=== PATIENT | male | born 1945 | race Caucasian/White ===

== ENCOUNTER 2017-05-31 16:31 | Observation (INO) | payer OTHER ==
[2017-05-31 16:39] VITALS: BMI 29.9
--- NOTE | 2017-05-31 16:39 | PDOC ---
Rapid Medical Evaluation Time Seen by Provider: 05/31/17 16:35 Medical Evaluation: Allergies Allergy/AdvReac Type Severity Reaction Status Date / Time No Known Allergies Allergy Verified 05/31/17 16:35 12 16:35 I have performed a brief in person evaluation of this patient. The patient presents with chief complaint of : chest tightness and epigastric burning started for 2 days, worse today , denies nausea . pt has history of arythmia, HTN, takes "blood thinners" Pertinent PE findings: irregular apical HR, I have ordered the following: EKG labs The patient will proceed to the ER for further evaluation.
--- NOTE | 2017-05-31 17:37 | PDOC ---
History of Present Illness - General Chief Complaint: Chest Pain Stated Complaint: CHEST PAIN Time Seen by Provider: 05/31/17 16:35 - History of Present Illness Initial Comments: 05/31/17 17:33 71 yo M with h/o HTN, A-fib on Pradaxa, and tonsilar cancer who presents with chest pain. Patient reports substernal chest pain of 2 days duration worsening in severity. Pain intermittent and fluctuates between sharp and pressure like sensation lasting seconds then resolving. Also reports regurgitation like symptoms. Symptoms aggravated with PO food intake. No other identifiable triggers. Denies N/V, fevers/chills, lightheadedness, abdominal pain, urinary complaints, diarrhea, constipation. Denies OTC pain. PCP/Jewelry Consultant Dr.Erik Leger. Denies h/o IL, CABG, Stent placement. Tobacco cessation 40 years ago. Past History - Past Medical History Allergies/Adverse Reactions: Allergies Allergy/AdvReac Type Severity Reaction Status Date / Time No Known Allergies Allergy Verified 05/31/17 16:35 Home Medications: Ambulatory Orders Dabigatran Etexilate Mesylate [Pradaxa -] 150 mg PO BID 07/02/14 Finasteride [Proscar -] 5 mg PO DAILY 07/02/14 Levothyroxine [Synthroid -] 125 mcg PO DAILY 07/02/14 Metoprolol Tartrate [Lopressor -] 50 mg PO BID 07/02/14 Alfuzosin HCl [Uroxatral] 10 mg PO DAILY 05/31/17 Allopurinol [Zyloprim -] 100 mg PO DAILY 05/31/17 Diltiazem HCl [Diltiazem 24Hr Cd] 240 mg PO DAILY 05/31/17 Losartan Potassium 50 mg PO BID 05/31/17 Cardiac Disorders: Yes (a-fib) COPD: No HTN: Yes - Suicide/Smoking/Psychosocial Hx Smoking Status: No Smoking History: Former smoker Have you smoked in the past 12 months: No Number of Cigarettes Smoked Daily: 0 Information on smoking cessation initiated: No Review of Systems - Review of Systems Comments:: 05/31/17 17:33 GENERAL/CONSTITUTIONAL: No fever or chills. No weakness. HEAD, EYES, EARS, NOSE AND THROAT: No change in vision. No ear pain or discharge. No sore throat.- CARDIOVASCULAR: + chest pain. No shortness of breath RESPIRATORY: No cough, wheezing, or hemoptysis. GASTROINTESTINAL: No nausea, vomiting, diarrhea or constipation. GENITOURINARY: No dysuria, frequency, or change in urination. MUSCULOSKELETAL: No joint or muscle swelling or pain. No neck or back pain. SKIN: No rash NEUROLOGIC: No headache, vertigo, loss of consciousness, or change in strength/ sensation. ENDOCRINE: No increased thirst. No abnormal weight change HEMATOLOGIC/LYMPHATIC: No anemia, easy bleeding, or history of blood clots. ALLERGIC/IMMUNOLOGIC: No hives or skin allergy. *Physical Exam - Vital Signs Last Vital Signs Temp Pulse Resp BP Pulse Ox 98 F 77 19 149/82 97 05/31/17 16:35 05/31/17 16:35 05/31/17 16:35 05/31/17 16:35 05/31/17 16:35 - Physical Exam Comments: 05/31/17 17:33 GENERAL: Awake, alert, and fully oriented, in no acute distress HEAD: No signs of trauma, normocephalic, atraumatic EYES: PERRLA, EOMI, sclera anicteric, conjunctiva clear ENT: Hearing grossly normal, nares patent, oropharynx clear without exudates. Moist mucosa NECK: Normal ROM, supple, no lymphadenopathy, JVD, or masses LUNGS: No distress, speaks full sentences, clear to auscultation bilaterally HEART: Regular rate and rhythm, normal S1 and S2, no murmurs, rubs or gallops, peripheral pulses normal and equal bilaterally. ABDOMEN: Soft, substernal/epigastric ttp, normoactive bowel sounds. No guarding , no rebound. No masses. Neg CVA ttp. Neg hendricks sign, or [place] ttp. EXTREMITIES : Normal inspection, Normal range of motion, no edema. No clubbing or cyanosis. SKIN: Warm, Dry, normal turgor, no rashes or lesions noted. Heart Score/ECG Review - History History: Slightly suspicious - Electrocardiogram EKG: Normal - Age Age: >/= 65 - Risk Factors Risk Factors Heart Score: Yes Hx Hypertension, Yes Smoking History, Yes Positive family hx of cardiac disease Based on the list above the patient has:: >/=3 risk factors or Hx atherosclerotic disease - Troponin Troponin: </= normal limit - Score Heart Score - Total: 4 - ECG Intrepretation Rhythm: Irregularly Irregular - ST and T Early Repolarization: No Non Specific ST-T Wave changes: No - ECG Impressions Normal ECG: No Non-specific ST Elevation: No Ischemic Changes: No ED Treatment Course - LABORATORY CBC & Chemistry Diagram: 05/31/17 17:55 05/31/17 17:55 Medical Decision Making - Medical Decision Making 05/31/17 18:07 71 yo M with h/o HTN, A-fib on Pradaxa, and tonsilar cancer who presents with intermittent, worsening, substernal chest pain of 2 days duration. Pain fluctuates between sharp and pressure like sensation lasting seconds then resolving. Also reports regurgitation like symptoms. Symptoms aggravated with PO food intake. No other identifiable triggers. Denies N/V, fevers/chills, lightheadedness, abdominal pain, urinary complaints, diarrhea, constipation. Physical exam reveals epigastric/substernal ttp. Physical exam and history consistent with gastritis vs. PUD (unlikely). Will consider atypical presentation ACS/IL in patient with multiple risk factors. ED Course: CBC, CMP, Lipase, Trop, Cardiac Profile EKG, UA 05/31/17 18:16 EKG: A- fib with absent MARIANO, STD, or TWI. 05/31/17 18:51 CBC: Unremarkable 05/31/17 18:55 Cr 1.9, BUN 25 05/31/17 18:56 Heart score 5 with 13 % risk MACE. 1 L NS 05/31/17 19:[address] Karrie Hector. Per Dr. Yoon will stay on Pradaxa. Will admit to Dr. Moncada tele/obs *DC/Admit/Observation/Transfer Diagnosis at time of Disposition: Chest pain - Discharge Dispostion Admit: Yes - Referrals - Patient Instructions - Post Discharge Activity
--- NOTE | 2017-05-31 17:38 | PDOC ---
Attending Attestation - Resident Resident Name: Richard Pelayo - ED Attending Attestation I have performed the following: I have examined & evaluated the patient, The case was reviewed & discussed with the resident, I agree w/resident's findings & plan, Exceptions are as noted - HPI HPI: 05/31/17 17:36 Chest Pain, On and Off past few days. None at present - Physicial Exam PE: 05/31/17 17:36 VSS NAD - Medical Decision Making 05/31/17 17:[address] Richard Pelayo's Assessment and Plan <Doug Salmeron - Last Filed: 05/31/17 17:36> Heart Score/ECG Review - ECG Intrepretation Comment:: 05/31/17 18:49 Vent Rate: 69 bpm IMPRESSION: Atrial fibrillation. <Savage Kwon - Last Filed: 05/31/17 18:50>
[2017-05-31] MEDS ORDERED: MAG HYDROX/AL HYDROX/SIMETH 30 ML UNIT-DOSE CUP PO ONE (17:57)
[2017-05-31] MEDS ORDERED: FAMOTIDINE IV 20 MG/12 ML VIAL IVPUSH ONE (18:00)
[2017-05-31 18:13] LABS: BASOPHIL 0.8 % (0-2.0); EOSINOPHIL 1.5 % (0-4.5); MCH 31.4 pg (25.7-33.7); MCHC 34.2 g/dl (32.0-35.9); MEAN CELL VOLUME 91.7 fl (80-96); NEUTROPHILS 68.4 % (42.8-82.8); PLATELET COUNT 140 K/MM3 (134-434); RDW 14.5 % (11.9-15.9); WHITE BLOOD COUNT 8.2 K/mm3 (4.0-10.0)
[2017-05-31] MEDS ORDERED: ONDANSETRON 4 MG/2 ML VIAL ONE (18:23)
[2017-05-31] MEDS ORDERED: MAG HYDROX/AL HYDROX/SIMETH 30 ML UNIT-DOSE CUP ONE (18:23)
[2017-05-31] MEDS ORDERED: FAMOTIDINE 20 MG/50 ML IVPB 20 MG/50 ML MG IVPB ONE (18:24)
[2017-05-31 18:46] LABS: ALBUMIN 4.2 g/dl (3.4-5.0); ANION GAP 7 (8-16); CALCIUM 9.6 mg/dL (8.5-10.1); CO2 30 mmol/L (21-32); CPK 279 IU/L (39-308); CREATININE 1.9 mg/dL (0.7-1.3); GLUCOSE,RANDOM 85 mg/dL (74-106); SGOT/AST 21 U/L (15-37); SGPT/ALT 34 U/L (12-78); TOT PROT 7.1 g/dl (6.4-8.2)
[2017-05-31 18:47] LABS: ALK PHOS 100 U/L (45-117); TROPONIN I < 0.02 ng/ml (0.00-0.05)
[2017-05-31] MEDS ORDERED: SODIUM CHLORIDE 1,000 ML IV STA (18:55)
--- NOTE | 2017-05-31 21:38 | HP ---
Admitting History and Physical - Primary Care Physician PCP: Ken Moncada - Admission Chief Complaint: chest pain History of Present Illness: 71 yo M with h/o HTN, A-fib on Pradaxa, and tonsilar cancer who presents with chest pain. Patient reports substernal chest pain of 2 days duration worsening in severity. Pain intermittent and fluctuates between sharp and pressure like sensation lasting seconds then resolving. Also reports regurgitation like symptoms. Symptoms aggravated with PO food intake. No other identifiable triggers. Denies N/V, fevers/chills, lightheadedness, abdominal pain, urinary complaints, diarrhea, constipation. Denies OTC pain. PCP/Career Technical Counselor Dr.Erik Leger. Denies h/o DC, CABG, Stent placement. Tobacco cessation 40 years ago. - Past Medical History Cardiovascular: Yes: AFIB, HTN Heme/Onc: Yes: Other (cancer tonsil) - Smoking History Smoking history: Former smoker Have you smoked in the past 12 months: No Aproximately how many cigarettes per day: 0 Home Medications - Allergies Allergies/Adverse Reactions: Allergies Allergy/AdvReac Type Severity Reaction Status Date / Time No Known Allergies Allergy Verified 05/31/17 16:35 - Home Medications Home Medications: Ambulatory Orders Dabigatran Etexilate Mesylate [Pradaxa -] 150 mg PO BID 07/02/14 Finasteride [Proscar -] 5 mg PO DAILY 07/02/14 Levothyroxine [Synthroid -] 125 mcg PO DAILY 07/02/14 Metoprolol Tartrate [Lopressor -] 50 mg PO BID 07/02/14 Alfuzosin HCl [Uroxatral] 10 mg PO DAILY 05/31/17 Allopurinol [Zyloprim -] 100 mg PO DAILY 05/31/17 Diltiazem HCl [Diltiazem 24Hr Cd] 240 mg PO DAILY 05/31/17 Losartan Potassium 50 mg PO BID 05/31/17 Physical Examination Vital Signs: Vital Signs Temperature 98.5 F 05/31/17 21:14 Pulse Rate 70 05/31/17 21:14 Respiratory Rate 19 05/31/17 21:14 Blood Pressure 183/75 05/31/17 21:14 O2 Sat by Pulse Oximetry (%) 98 05/31/17 19:12 Constitutional: Yes: No Distress HENT: Yes: Atraumatic Neck: Yes: Supple Cardiovascular: Yes: Regular Rate and Rhythm Respiratory: Yes: CTA Bilaterally Gastrointestinal: Yes: Normal Bowel Sounds Extremities: Yes: WNL Neurological: Yes: Alert, Oriented Labs: CBC, BMP 05/31/17 17:55 05/31/17 17:55 Problem List - Problems (1) A-fib Assessment/Plan: on meds Code(s): I48.91 - UNSPECIFIED ATRIAL FIBRILLATION (2) HTN (hypertension) Assessment/Plan: on meds Code(s): I10 - ESSENTIAL (PRIMARY) HYPERTENSION (3) Chest pain Assessment/Plan: tele monitoring fu cardiac enzymes cardiology consult Code(s): R07.9 - CHEST PAIN, UNSPECIFIED Assessment/Plan Laboratory Tests 05/31/17 05/31/17 05/31/17 17:55 17:55 17:55 WBC 8.2 RBC 4.80 Hgb 15.1 Hct 44.1 MCV 91.7 MCH 31.4 MCHC 34.2 RDW 14.5 Plt Count 140 MPV 9.0 Neutrophils % 68.4 Lymphocytes % 20.8 Monocytes % 8.5 Eosinophils % 1.5 Basophils % 0.8 Sodium 138 Potassium 4.1 Chloride 101 Carbon Dioxide 30 D Anion Gap 7 L BUN 25 H Creatinine 1.9 H Creat Clearance w eGFR 35.02 Random Glucose 85 Calcium 9.6 Total Bilirubin 1.0 D AST 21 ALT 34 Alkaline Phosphatase 100 Creatine Kinase 279 Creatine Kinase Index 2.3 CK-MB (CK-2) 6.532 H Troponin I < 0.02 Total Protein 7.1 Albumin 4.2 Lipase 151
[2017-05-31] MEDS: DABIGATRAN ETEXILATE MESYLATE 150 MG CAPSULE PO SCH (22:14)
[2017-05-31] MEDS: METOPROLOL TARTRATE 50 MG TABLET (FP) PO SCH (22:14)
[2017-05-31] MEDS: LOSARTAN POTASSIUM 50 MG TABLET (FP) PO SCH (22:15)
[2017-05-31] MEDS ORDERED: ACETAMINOPHEN 325 MG TABLET (FP) PO PRN (23:13)
[2017-05-31 23:49] LABS: ANION GAP 9 (8-16); BILIRUBIN,TOTAL 1.1 mg/dL (0.2-1.0); CALCIUM 9.4 mg/dL (8.5-10.1); CO2 27 mmol/L (21-32); CREATININE 1.7 mg/dL (0.7-1.3); GLUCOSE,RANDOM 79 mg/dL (74-106); SGOT/AST 21 U/L (15-37); SGPT/ALT 32 U/L (12-78); TOT PROT 6.9 g/dl (6.4-8.2)
[2017-05-31 23:52] LABS: ALK PHOS 94 U/L (45-117); CPK 251 IU/L (39-308); TROPONIN I < 0.02 ng/ml (0.00-0.05)
[2017-06-01 06:05] VITALS: TEMP 97.6
[2017-06-01] MEDS ORDERED: LEVOTHYROXINE NA 125 MCG TABLET (FP) PO SCH (07:00)
[2017-06-01 07:36] LABS: BASOPHIL 0.8 % (0-2.0); EOSINOPHIL 2.2 % (0-4.5); MCH 31.2 pg (25.7-33.7); MCHC 34.6 g/dl (32.0-35.9); MEAN CELL VOLUME 90.3 fl (80-96); MEAN PLT VOLUME 8.6 fl (7.5-11.1); NEUTROPHILS 62.6 % (42.8-82.8); PLATELET COUNT 126 K/MM3 (134-434); RDW 14.4 % (11.9-15.9); WHITE BLOOD COUNT 6.7 K/mm3 (4.0-10.0)
--- NOTE | 2017-06-01 08:21 | PN ---
Progress Note (short form) - Note Progress Note: Chief Complaint: Events noted, notes reviewed, denies any further chest pain, denies any dyspnea History of Present Illness: Seen and examined on telemetry. Full consult dictated - Current Medication List Current Medications Acetaminophen (Tylenol -) 650 mg PO Q6H PRN PRN Reason: FEVER OR PAIN Last Admin: 05/31/17 23:16 Dose: 650 mg Allopurinol (Zyloprim -) 100 mg PO DAILY [facility] Dabigatran (Pradaxa -) 150 mg PO BID [facility] Last Admin: 05/31/17 22:14 Dose: 150 mg Diltiazem HCl (Cardizem Cd -) 240 mg PO DAILY [facility] Finasteride (Proscar -) 5 mg PO DAILY [facility] Levothyroxine Sodium (Synthroid -) 125 mcg PO DAILY@0700 [facility] Last Admin: 06/01/17 06:08 Dose: 125 mcg Losartan Potassium (Cozaar -) 50 mg PO BID [facility] Last Admin: 05/31/17 22:15 Dose: 50 mg Metoprolol Tartrate (Lopressor -) 50 mg PO BID [facility] Last Admin: 05/31/17 22:14 Dose: 50 mg Tamsulosin HCl (Flomax -) 0.4 mg PO DAILY@0830 [facility] Review of Systems Cardiovascular: As noted above Respiratory: denies: Cough or Sputum Production Gastrointestinal: denies: Nausea, Vomiting, Diarrhea, Constipation or Abdominal Discomfort Musculoskeletal: No Symptoms Reported Endocrine: No Symptoms Reported - Objective Vital Signs: Last Vital Signs Temp Pulse Resp BP Pulse Ox 97.6 F 58 L 19 138/67 98 06/01/17 06:00 06/01/17 06:00 06/01/17 06:00 06/01/17 06:00 05/31/17 21:48 Intake & Output 05/29/17 05/30/17 05/31/17 06/01/17 23:59 23:59 23:59 23:59 Intake Total 240 Balance 240 Weight 205 lb Constitutional: No Distress, Calm Neck: Supple Negative JVD No Bruit Cardiovascular: S1 S2 Irregularly Irregular No Murmurs Clicks or Gallops Respiratory: Clear to A&P Bilaterally Gastrointestinal: Soft Benign Normal Bowel Sounds Ext: Negative Edema Labs: CBC, BMP 06/01/17 05:22 05/31/17 22:40 Troponin, BNP 05/31/17 05/31/1705/31/17 17:55 22:40 22:40 Troponin I < 0.02 < 0.02 Cancelled Hepatic Panel Total Bilirubin 1.1 mg/dL (0.2-1.0) H 05/31/17 22:40 AST 21 U/L (15-37) 05/31/17 22:40 ALT 32 U/L (12-78) 05/31/17 22:40 Alkaline Phosphatase 94 U/L (45-117) 05/31/17 22:40 Albumin 4.0 g/dl (3.4-5.0) 05/31/17 22:40 Assessment/Plan ASSESSMENT: 1. Chest pain syndrome, atypical for CAD angina pectoris, but to be excluded, other differential includes GERD/PUD 2. Diastolic LV dysfunction with class 0 NYHA clarification LV failure 3. Persistent atrial fibrillation [id number] score of 3 on NOAC's/Pradaxa 4. HTN 5. Hypercholesterolemia 6. CKD 7. 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 History of Gout PLAN: 1. Continue Lopressor 2. Continue Cardizem CD 3. Continue Cozaar 4. Continue Pradaxa 5. Recommend the addition of Ranexa or Imdur, pending completion of evaluation 6. Recommend the addition of H2 blockers, and GI evaluation as outpatient 7. Echocardiography and MPI study can be performed as outpatient with patient's pediatric physiatrist in [facility], Dr. Freddie Lopez Above was reviewed in detail with the patient Wali Galvan M.D.
[2017-06-01] MEDS ORDERED: TAMSULOSIN HCL 0.4 MG CAP.ER.24H (FP) PO SCH (08:30)
[2017-06-01] MEDS: RANOLAZINE E.R. 500 MG TABLET (FP) PO SCH ×2 (09:23→09:25)
[2017-06-01] MEDS: RANITIDINE HCL 150 MG TABLET (FP) PO SCH ×2 (09:24→09:25)
[2017-06-01] MEDS: DABIGATRAN ETEXILATE MESYLATE 150 MG CAPSULE PO SCH (09:24)
[2017-06-01] MEDS: LOSARTAN POTASSIUM 50 MG TABLET (FP) PO SCH (09:25)
[2017-06-01] MEDS: METOPROLOL TARTRATE 50 MG TABLET (FP) PO SCH ×2 (09:25→11:25)
[2017-06-01] MEDS ORDERED: FINASTERIDE 5 MG TABLET (FP) PO SCH (10:00)
[2017-06-01] MEDS ORDERED: ALLOPURINOL 100 MG TABLET (FP) PO SCH (10:00)
--- NOTE | 2017-06-01 10:38 | CONS ---
DATE OF CONSULTATION: 06/01/2017 REQUESTING PHYSICIAN: Charlotte Moncada MD CHIEF COMPLAINT: Chest peain, cardiovascular evaluation. HISTORY OF PRESENT ILLNESS: This is a 71-year-old male with known history of probable diastolic left ventricular dysfunction with class 0 [place] [employer] Classification left ventricular failure, persistent atrial fibrillation, CHADS2-VASc score of 3, on chronic anticoagulation therapy with Pradaxa, hypertensive cardiovascular disease, hypercholesterolemia, history of oropharyngeal carcinoma post radiation therapy, benign prostatic hypertrophy, and gout, who presented to [facility] with progressive retrosternal chest discomfort, which has been noted for the last 3 days. Symptoms were described a burning sensation noted at rest and with physical activity. Patient, in addition, reported progressive fatigue and tiredness and exertional dyspnea. Patient did not report any exacerbation with physical exertion. Patient denied any associated symptomatology, i.e. diaphoresis. Patient denied any orthopnea, paroxysmal nocturnal dyspnea, or peripheral edema. Patient denied any palpitations, dizziness, lightheadedness, or syncope. Patient stated that there was partial alleviation after ingestion of antacid therapy. PAST MEDICAL HISTORY: Probable diastolic left ventricular dysfunction with class 0 [place] [employer] Classification left ventricular failure, persistent atrial fibrillation, CHADS2-VASc score of 3, on chronic anticoagulation therapy with Pradaxa, hypertensive cardiovascular disease, hypercholesterolemia, oropharyngeal carcinoma post radiation therapy, benign prostatic hypertrophy, and gout. SOCIAL HISTORY: Remote history of tobacco abuse. FAMILY HISTORY: Positive for coronary artery disease. ALLERGIES: None reported. MEDICAL THERAPY: At home included Synthroid 125 mcg once daily for hypothyroidism, Lopressor 50 mg twice a day, Cardizem CD 240 mg once a day, losartan 50 mg twice a day, Proscar 5 mg once a day, Uroxatral 10 mg once a day, Pradaxa 150 mg twice a day, allopurinol 100 mg twice a day. REVIEW OF SYSTEMS: Head and neck: Denies headache, photophobia, blurring of vision. Respiratory: Denies cough or sputum production. Cardiovascular: As noted above. Gastrointestinal: Denies nausea, vomiting, diarrhea, or abdominal discomfort. Genitourinary: No symptoms reported. Musculoskeletal: No symptoms reported. PHYSICAL EXAMINATION: Vital signs: Blood pressure is 138/67 mmHg, pulse rate is 58 beats per minute. Head and neck: Pupils are equally reactive to light and accommodation. Extraocular muscles are intact. Anicteric sclerae. Negative JVD. No bruit appreciated. Chest: Clear to auscultation and percussion. Cardiovascular: S1, S2 irregularly irregular. No murmur, clicks or gallops. Abdomen: Soft, benign. Normoactive bowel sounds. Extremities: Negative edema. Intact distal pulses. No calf tenderness. STUDIES: Electrocardiogram reveals atrial fibrillation with rapid ventricular at 69 with non-specific T-wave abnormality. Chest x-ray report was noted. CBC revealed a white cell count of 6.7, hemoglobin 14.3, platelet count 126. CPK troponin I levels were noted. Sodium 140, potassium 3.8, BUN of 24, creatinine 1.7, glucose 79. ASSESSMENT: 1. Chest pain syndrome, atypical for coronary artery disease, angina pectoris to be excluded. Other differential includes possible gastroesophageal reflux disease or peptic ulcer disease. 2. Diastolic left ventricular dysfunction with class 0 [place] [employer] Classification left ventricular failure. 3. Persistent atrial fibrillation, CHADS-VASc score of 3 on chronic anticoagulation therapy with Pradaxa. 4. Hypertensive cardiovascular disease. 5. Hypercholesterolemia. 6. Chronic kidney disease. 7. Benign prostatic hypertrophy. 8. History of oropharyngeal carcinoma post radiation therapy. 9. History of gout. RECOMMENDATION: 1. Continuation of Lopressor. 2. Continuation of Cardizem CD. 3. Continuation of Cozaar. 4. Continuation of Pradaxa. 5. Recommend the addition of Ranexa or Imdur pending completion of evaluation. 6. Recommend the addition of H2 blockers and further GI evaluation on an outpatient basis. 7. Echocardiography and myocardial perfusion imaging study, can be performed on an outpatient basis with patients marketing recruiter in [facility], Dr. Freddie Lopez. Above was reviewed in detail with the patient, who prefers as outlined above outpatient evaluation and management. Thank you for the kind referral. COURTNEY MULLINS M.D. EMELYN/[id number]
--- NOTE | 2017-06-01 10:48 | DS ---
Physical Examination Vital Signs: Vital Signs Temperature 97.6 F 06/01/17 06:00 Pulse Rate 58 L 06/01/17 06:00 Respiratory Rate 19 06/01/17 06:00 Blood Pressure 138/67 06/01/17 06:00 O2 Sat by Pulse Oximetry (%) 98 05/31/17 21:48 Constitutional: Yes: No Distress HENT: Yes: Atraumatic Neck: Yes: Supple Cardiovascular: Yes: Regular Rate and Rhythm Respiratory: Yes: CTA Bilaterally Gastrointestinal: Yes: Normal Bowel Sounds Extremities: Yes: WNL Neurological: Yes: Alert, Oriented Labs: CBC, BMP 06/01/17 05:22 05/31/17 22:40 Discharge Summary Reason For Visit: CHEST PAIN Current Active Problems A-fib (Acute) Chest pain (Acute) HTN (hypertension) (Acute) - Instructions Disposition: HOME - Home Medications Comprehensive Discharge Medication List: Ambulatory Orders Dabigatran Etexilate Mesylate [Pradaxa -] 150 mg PO BID 07/02/14 Finasteride [Proscar -] 5 mg PO DAILY 07/02/14 Levothyroxine [Synthroid -] 125 mcg PO DAILY 07/02/14 Metoprolol Tartrate [Lopressor -] 50 mg PO BID 07/02/14 Alfuzosin HCl [Uroxatral] 10 mg PO DAILY 05/31/17 Allopurinol [Zyloprim -] 100 mg PO DAILY 05/31/17 Diltiazem HCl [Diltiazem 24Hr Cd] 240 mg PO DAILY 05/31/17 Losartan Potassium 50 mg PO BID 05/31/17 in home
[2017-06-01 11:27] VITALS: BP 139/92; PULSE 50
--- NOTE | 2017-06-02 07:53 | EKG ---
Test Reason : Blood Pressure : / mmHG Vent. Rate : 069 BPM Atrial Rate : 085 BPM P-R Int : 000 ms QRS Dur : 104 ms QT Int : 378 ms P-R-T Axes : 000 -07 052 degrees QTc Int : 405 ms ATRIAL FIBRILLATION ABNORMAL ECG A 1.9 second pause is noted WHEN COMPARED WITH ECG OF 02-JUL-2014 20:13, NO SIGNIFICANT CHANGE WAS FOUND Confirmed by MD Pineda Daniel ([id number]) on 06/01/2017 2:56:22 PM Also confirmed by MD Pineda Daniel ([id number]), field map editor BLAS WARNER ([id number]) on 06/02/2017 7:53:24 AM Referred By: Confirmed By:Blas Pineda MD
== END 2017-06-01 15:31 | disposition home or self-care (01) ==
LOC: JER 16:31 → JERBED 19:19 → J4W 21:25
PROVIDERS: ADMIT Internal Medicine; ATTEND Internal Medicine
PROC: 3E0337Z Introduction of Electrolytic and Water Balance Substance into Peripheral Vein, Percutaneous Approach (ICD-10-PCS; principal; 2017-05-31)
PROC: 3E033GC Introduction of Other Therapeutic Substance into Peripheral Vein, Percutaneous Approach (ICD-10-PCS; 2017-05-31)
DX: R07.9 Chest pain, unspecified (principal); I48.91 Unspecified atrial fibrillation; Z79.01 Long term (current) use of anticoagulants; I10 Essential (primary) hypertension
CPT/HCPCS: 36415; 71010-TC; 80053; 82550; 82553; 83690; 84484; 85025; 93005; 93010; 96361; 96374; 99284-25; G0378

== ENCOUNTER 2018-10-02 12:29 | Emergency (ER) | payer OTHER ==
[2018-10-02 12:55] VITALS: BMI 30.2
--- NOTE | 2018-10-02 14:19 | PDOC ---
History of Present Illness - General Chief Complaint: Blood Pressure Problem Stated Complaint: HYPERTENSION Time Seen by Provider: 10/02/18 13:49 Past History - Past Medical History Allergies/Adverse Reactions: Allergies Allergy/AdvReac Type Severity Reaction Status Date / Time No Known Allergies Allergy Verified 05/31/17 16:35 Home Medications: Ambulatory Orders Dabigatran Etexilate Mesylate [Pradaxa -] 150 mg PO BID 07/02/14 Finasteride [Proscar -] 5 mg PO DAILY 07/02/14 Levothyroxine [Synthroid -] 125 mcg PO DAILY 07/02/14 Metoprolol Tartrate [Lopressor -] 50 mg PO BID 07/02/14 Alfuzosin HCl [Uroxatral] 10 mg PO DAILY 05/31/17 Allopurinol [Zyloprim -] 100 mg PO DAILY 05/31/17 Diltiazem HCl [Diltiazem 24Hr Cd] 240 mg PO DAILY 05/31/17 Losartan Potassium 50 mg PO BID 05/31/17 Cardiac Disorders: Yes (a-fib) COPD: No HTN: Yes - Suicide/Smoking/Psychosocial Hx Smoking Status: No Smoking History: Never smoked Have you smoked in the past 12 months: No Number of Cigarettes Smoked Daily: 0 Hx Alcohol Use: No Review of Systems - Review of Systems Able to Perform ROS?: Yes Comments:: 10/02/18 14:59 CONSTITUTIONAL: Absent: fever, chills, diaphoresis, generalized weakness, malaise, loss of appetite HEENT: Absent: rhinorrhea, nasal congestion, throat pain, throat swelling, difficulty swallowing, mouth swelling, ear pain, eye pain, visual Changes CARDIOVASCULAR: Absent: chest pain, loss of consciousness, palpitations, irregular heart rate, peripheral edema RESPIRATORY: Absent: cough, shortness of breath, dyspnea with exertion, orthopnea, wheezing, stridor, hemoptysis GASTROINTESTINAL: Absent: abdominal pain, abdominal distension, nausea, vomiting, diarrhea, constipation, melena, hematochezia GENITOURINARY: Absent: dysuria, frequency, urgency, hesitancy, hematuria, flank pain, genital pain MUSCULOSKELETAL: Absent: myalgia, arthralgia, joint swelling SKIN: Absent: rash, itching, pallor HEMATOLOGIC/IMMUNOLOGIC: Absent: easy bleeding, easy bruising, lymphadenopathy, frequent infections ENDOCRINE: Absent: unexplained weight gain, unexplained weight loss, heat intolerance, cold intolerance NEUROLOGIC: Absent: headache, focal weakness or paresthesias, dizziness, unsteady gait, seizure, mental status changes, bladder or bowel incontinence PSYCHIATRIC: Absent: anxiety, depression, suicidal or homicidal ideation, hallucinations. Is the patient limited Turkmen proficient: No *Physical Exam - Vital Signs Last Vital Signs Temp Pulse Resp BP Pulse Ox 98.8 F 72 18 157/76 99 10/02/18 12:51 10/02/18 12:51 10/02/18 12:51 10/02/18 12:51 10/02/18 12:51 - Physical Exam Comments: 10/02/18 14:59 GENERAL: Well developed, well nourished. Awake and alert. No acute distress. HEENT: Normocephalic, atraumatic. PERRLA, EOMI. No conjunctival pallor. Sclera are non- icteric. Moist mucous membranes. Oropharynx is clear. NECK: Supple. Full ROM. No JVD. Carotid pulses 2+ and symmetric, without bruits. No thyromegaly. No lymphadenopathy. CARDIOVASCULAR: Irregularly irregular rate and rhythm. No murmurs, rubs, or gallops. Distal pulses are 2+ and symmetric. PULMONARY: No evidence of respiratory distress. Lungs clear to auscultation bilaterally. No wheezing, rales or rhonchi. SKIN: Warm and dry. Normal capillary refill. No rashes. No jaundice. NEUROLOGICAL: Alert, awake, appropriate. Cranial nerves 2-12 intact. No deficits to light touch and temperature in face, upper extremities and lower extremities. No motor deficits in the in face, upper extremities and lower extremities. Normoreflexic in the upper and lower extremities. Normal speech. Toes are down- going bilaterally. Gait is normal without ataxia. PSYCHIATRIC: Cooperative. Good eye contact. Appropriate mood and affect. Medical Decision Making - Medical Decision Making 10/02/18 14:43 HPI: The patient is a 73 y/o M with PHM of Afib, HTN, hypothyroidism, who presents to the ED for elevated blood pressure. He states that he noticed his blood pressure was elevated to 180/90 at home; so he presented to the ED for evaluation. He states that when he got to the ED (~12pm) he took a dose of Cardizem 240mg and Metoprolol 50mg. He states as he was sitting in the ED he remembered that he took the same medications at 8 am this morning. Denies headaches, LOC, lightheadedness, fever, chills, n/v/d, weakness to the extremities A/P: Hypertension; double dosing of home Metoprolol and Cardizem -Pt usually takes Lopressor 50mg BID and Cardizem 24hr 240mg -Poison control contacted d/t double dosing of lopressor and cardizem. Pt took 100mg total of Lopressor and 480mg of Cardizem. Doses taken at 8 am and 12pm. -Max dose of cardizem daily is 540mg per poison control. -Recommending at least a 6 hour observation period. -Pt has no complaints at this time; repeat BP 165/90 -EKG: Afib, rate 53 BPM, slow ventricular response. No ST-T wave changes, abnormal EKG -Pt transferred to the Main ED for higher level of care. Dr. Roth and Charge Nurse Akosua harrell. *DC/Admit/Observation/Transfer Diagnosis at time of Disposition: HTN (hypertension) Qualifiers: Hypertension type: unspecified Qualified Code(s): I10 - Essential (primary) hypertension Medication overdose Qualifiers: Encounter type: initial encounter Injury intent: accidental or unintentional Qualified Code(s): T50.901A - Poisoning by unspecified drugs, medicaments and biological substances, accidental (unintentional), initial encounter - Referrals - Patient Instructions - Post Discharge Activity
--- NOTE | 2018-10-02 15:06 | PDOC ---
*Physical Exam - Vital Signs Last Vital Signs Temp Pulse Resp BP Pulse Ox 98.8 F 72 18 157/76 98 10/02/18 12:51 10/02/18 12:51 10/02/18 12:51 10/02/18 12:51 10/02/18 14:55 - Physical Exam Comments: 10/02/18 15:12 HEAD: No signs of trauma, normocephalic, atraumatic EYES: EOMI, sclera anicteric, conjunctiva clear ENT: oropharynx clear without exudates. Moist mucosa NECK: Normal ROM, supple LUNGS: No distress, speaks full sentences, clear to auscultation bilaterally HEART: Regular rate and irregular rhythm, normal S1 and S2, no murmurs, rubs or gallops, peripheral pulses normal and equal bilaterally. ABDOMEN: Soft, nontender, normoactive bowel sounds. No guarding, no rebound. No masses EXTREMITIES : Normal inspection, Normal range of motion, no edema. No clubbing or cyanosis. NEUROLOGICAL: Cranial nerves II through XII grossly intact. Normal speech, no focal sensorimotor deficits SKIN: Warm, Dry, normal turgor, no rashes or lesions noted Medical Decision Making - Medical Decision Making 10/02/18 15:06 73 year old man with a history of afib, htn, hypothyroidism presents with hypertention to 180/90s at home took cardizem 240mg and metorpolol 50mg at 8am and again at 12pm. Po[facility] control [facility] recommends an observation of 6 hours BP in ED 165/90 EKG with afib at 53bpm, no st segment elevation ED Course: Will observe patient with repeat BP checks 10/02/18 16:59 repeat vitals: 150/79, hr 59 *DC/Admit/Observation/Transfer Diagnosis at time of Disposition: HTN (hypertension) Qualifiers: Hypertension type: unspecified Qualified Code(s): I10 - Essential (primary) hypertension Medication overdose Qualifiers: Encounter type: initial encounter Injury intent: accidental or unintentional Qualified Code(s): T50.901A - Poisoning by unspecified drugs, medicaments and biological substances, accidental (unintentional), initial encounter - Discharge Dispostion Disposition: HOME Condition at time of disposition: Stable Decision to Admit order: No - Referrals - Patient Instructions Printed Discharge Instructions: DI for High Blood Pressure Additional Instructions: You were seen in the ED for complaints of repeat dosing of blood pressure medications. In the ED you were evaluated and observed for 6 hours as advised by poison control. you showed stable vitals throughout. There does not appear to be an acute need for immediate hospitalization. You are advised to follow up with your Primary Care Physician within 1 week. Please make sure that you take all medications as directed. If you have trouble taking your medications appropriately please bring this up to your Family Doctor. Return to the ED immediately if you experience lightheadedness, loss of consciousness, chest pain, shortness of breath, headache or falls. - Post Discharge Activity
[2018-10-02 18:19] VITALS: BP 149/86; PULSE 55; TEMP 98.3
--- NOTE | 2018-10-03 15:34 | EKG ---
Test Reason : Blood Pressure : / mmHG Vent. Rate : 053 BPM Atrial Rate : 055 BPM P-R Int : 000 ms QRS Dur : 098 ms QT Int : 458 ms P-R-T Axes : 000 -12 007 degrees QTc Int : 429 ms ATRIAL FIBRILLATION WITH SLOW VENTRICULAR RESPONSE ABNORMAL ECG WHEN COMPARED WITH ECG OF 31-MAY-2017 16:44, T WAVE VARIATION Confirmed by MEGGAN AUGUSTE MD ([id number]) on 10/03/2018 3:34:30 PM Referred By: RS Confirmed By:MEGGAN AUGUSTE MD
== END 2018-10-02 18:28 | disposition home or self-care (01) ==
LOC: JER 12:29
DX: T46.1X1A Poisoning by calcium-channel blockers, accidental (unintentional), initial encounter (principal); T44.7X1A Poisoning by beta-adrenoreceptor antagonists, accidental (unintentional), initial encounter; Y92.038 Other place in apartment as the place of occurrence of the external cause; I10 Essential (primary) hypertension; I48.91 Unspecified atrial fibrillation; Z79.01 Long term (current) use of anticoagulants; E03.9 Hypothyroidism, unspecified
CPT/HCPCS: 93005; 93010; 99282-25

== ENCOUNTER 2021-09-20 16:00 | Emergency (ER) | payer OTHER ==
[2021-09-20 16:24] VITALS: BP 106/64; PULSE 48; TEMP 97.6; BMI 26.6
== END 2021-09-20 19:35 | disposition home or self-care (01) ==
LOC: JER 16:00
DX: R22.41 Localized swelling, mass and lump, right lower limb (principal)
CPT/HCPCS: 93005; 93010; 93971-TC; 99284-25

== ENCOUNTER 2021-10-24 12:36 | Inpatient (IN) | payer OTHER ==
[2021-10-24 13:09] VITALS: BMI 26.4
[2021-10-24 14:30] LABS: BASO % 0.6 % (0-2.0); EOS % 1.6 % (0-4.5); HEMATOCRIT 37.9 % (35.4-49); HEMOGLOBIN 13.1 GM/dL (11.7-16.9); LYMPH % 15.4 % (8-40); MCHC 34.7 g/dl (32.0-35.9); MEAN CELL VOLUME 95.2 fl (80-96); MEAN PLT VOLUME 9.9 fl (7.5-11.1); MONO % 11.4 % (3.8-10.2); PLATELET COUNT 102 10^3/uL (134-434); RBC 3.98 M/mm3 (4.00-5.60); RDW 15.3 % (11.9-15.9); WHITE BLOOD COUNT 6.4 K/mm3 (4.0-10.0)
[2021-10-24] MEDS ORDERED: LACTATED RINGERS SOLUTION 1000 ML INFUS.BAG IV ONE (14:32)
[2021-10-24 14:34] LABS: EPI CELLS 5 /uL (0-25.1); HYALINE CASTS 0 /uL (0-3.1); PH,URINE 6.5 (5.0-8.0); URINE APPEARANCE CLEAR; URINE BACTERIA 1 /uL (0-1359); URINE BILIRUBIN NEGATIVE (NEGATIVE); URINE COLOR DK YELLOW; URINE GLUCOSE (UA) NEGATIVE (NEGATIVE); URINE KETONE TRACE (NEGATIVE); URINE LEUK ESTERASE NEGATIVE (NEGATIVE); URINE NITRITE NEGATIVE (NEGATIVE); URINE PROTEIN 1+ (NEGATIVE); URINE RBC 385 /uL (0-23.9); URINE WBC 4 /uL (0-25.8)
[2021-10-24 14:50] LABS: CALCIUM 8.3 mg/dL (8.5-10.1)
[2021-10-24 14:51] LABS: ALBUMIN 3.1 g/dl (3.4-5.0); BLOOD UREA NITROGEN 28.2 mg/dL (7-18); MAGNESIUM 2.1 mg/dL (1.8-2.4)
[2021-10-24 14:54] LABS: CREATININE 1.8 mg/dL (0.55-1.3)
[2021-10-24 14:55] LABS: BILIRUBIN,TOTAL 0.7 mg/dL (0.2-1)
[2021-10-24 14:59] LABS: N-TERMINAL BNP 2101.9 pg/ml (5-450)
[2021-10-24 15:51] LABS: VENOUS PCO2 47.2 mmHg (38-52); VENOUS PH 7.344 (7.310-7.410)
[2021-10-24 20:36] LABS: PHOSPHOROUS 3.4 mg/dL (2.5-4.9)
[2021-10-24] MEDS ORDERED: METOPROLOL TARTRATE 50 MG TABLET (FP) PO ONE (22:05)
[2021-10-24] MEDS ORDERED: METOPROLOL TARTRATE 50 MG TABLET (FP) ONE (22:25)
[2021-10-24] MEDS ORDERED: ATORVASTATIN CA 10 MG TABLET (FP) ONE (22:25)
[2021-10-24] MEDS ORDERED: HEPARIN NA (PORCINE) 5,000 UNITS/ML 1ML VIAL ONE (22:25)
[2021-10-24] MEDS: ATORVASTATIN CA 10 MG TABLET (FP) PO SCH (23:09)
[2021-10-24] MEDS: HEPARIN NA (PORCINE) 5,000 UNITS/ML 1ML VIAL SQ SCH (23:09)
[2021-10-24] MEDS: MEMANTINE HCL 10 MG TABLET (FP) PO SCH (23:09)
[2021-10-25] MEDS: LEVOTHYROXINE NA 125 MCG TABLET (FP) PO SCH (06:20)
[2021-10-25] MEDS: HEPARIN NA (PORCINE) 5,000 UNITS/ML 1ML VIAL SQ SCH ×3 (06:20→21:04)
[2021-10-25 07:08] LABS: BASO % 0.4 % (0-2.0); EOS % 2.1 % (0-4.5); HEMATOCRIT 35.2 % (35.4-49); HEMOGLOBIN 12.9 GM/dL (11.7-16.9); LYMPH % 16.4 % (8-40); MCH 35.3 pg (25.7-33.7); MCHC 36.5 g/dl (32.0-35.9); MEAN CELL VOLUME 96.7 fl (80-96); MEAN PLT VOLUME 10.6 fl (7.5-11.1); MONO % 10.5 % (3.8-10.2); NEUT % 70.6 % (42.8-82.8); PLATELET COUNT 109 10^3/uL (134-434); RBC 3.64 M/mm3 (4.00-5.60); RDW 15.5 % (11.9-15.9); WHITE BLOOD COUNT 5.9 K/mm3 (4.0-10.0)
[2021-10-25 07:28] LABS: CALCIUM 8.3 mg/dL (8.5-10.1)
[2021-10-25 07:29] LABS: BLOOD UREA NITROGEN 23.2 mg/dL (7-18)
[2021-10-25 07:32] LABS: CREATININE 1.5 mg/dL (0.55-1.3)
[2021-10-25] MEDS: ESCITALOPRAM OXALATE 10 MG TABLET PO SCH (09:15)
[2021-10-25] MEDS: MEMANTINE HCL 10 MG TABLET (FP) PO SCH ×2 (09:15→21:04)
[2021-10-25] MEDS: metoPROLOL SUCCINATE 25 MG TAB.SR.24H (FP) PO SCH (09:15)
[2021-10-25] MEDS ORDERED: PATIENT'S OWN MEDICATION (NON-FORMULARY) (Alfuzosin Hcl [Uroxatral] 10 MG Tab.Er.24h) PO SCH (16:30)
[2021-10-25] MEDS: traZODone HCL 50 MG TABLET (FP) PO SCH ×2 (17:22→21:04)
[2021-10-25] MEDS: FINASTERIDE 5 MG TABLET (FP) PO SCH (17:22)
[2021-10-25] MEDS: ATORVASTATIN CA 10 MG TABLET (FP) PO SCH (21:04)
[2021-10-26] MEDS: HEPARIN NA (PORCINE) 5,000 UNITS/ML 1ML VIAL SQ SCH ×3 (06:13→22:14)
[2021-10-26] MEDS: LEVOTHYROXINE NA 125 MCG TABLET (FP) PO SCH (06:13)
[2021-10-26 06:59] LABS: HEMATOCRIT 39.5 % (35.4-49); HEMOGLOBIN 13.8 GM/dL (11.7-16.9); MCH 32.9 pg (25.7-33.7); MCHC 34.9 g/dl (32.0-35.9); MEAN CELL VOLUME 94.2 fl (80-96); PLATELET COUNT 111 10^3/uL (134-434); RBC 4.19 M/mm3 (4.00-5.60); RDW 15.3 % (11.9-15.9); WHITE BLOOD COUNT 6.8 K/mm3 (4.0-10.0)
[2021-10-26 07:31] LABS: CALCIUM 8.6 mg/dL (8.5-10.1)
[2021-10-26 07:32] LABS: BLOOD UREA NITROGEN 22.2 mg/dL (7-18)
[2021-10-26 07:35] LABS: CREATININE 1.5 mg/dL (0.55-1.3)
[2021-10-26] MEDS ORDERED: traZODone HCL 50 MG TABLET (FP) PO SCH (08:42)
[2021-10-26] MEDS: metoPROLOL SUCCINATE 25 MG TAB.SR.24H (FP) PO SCH (10:49)
[2021-10-26] MEDS: ESCITALOPRAM OXALATE 10 MG TABLET PO SCH (10:49)
[2021-10-26] MEDS: FINASTERIDE 5 MG TABLET (FP) PO SCH (10:49)
[2021-10-26] MEDS: TAMSULOSIN HCL 0.4 MG CAP PO SCH (10:49)
[2021-10-26] MEDS: hydrALAZINE HCL 25 MG TABLET (FP) PO SCH ×2 (10:50→22:14)
[2021-10-26] MEDS: MEMANTINE HCL 10 MG TABLET (FP) PO SCH ×2 (10:50→22:14)
[2021-10-26] MEDS ORDERED: HALOPERIDOL 1 MG TABLET PO ONE (19:41)
[2021-10-26] MEDS: ATORVASTATIN CA 10 MG TABLET (FP) PO SCH (22:14)
[2021-10-27] MEDS: HEPARIN NA (PORCINE) 5,000 UNITS/ML 1ML VIAL SQ SCH ×2 (06:06→15:12)
[2021-10-27] MEDS: LEVOTHYROXINE NA 125 MCG TABLET (FP) PO SCH (06:06)
[2021-10-27] MEDS: metoPROLOL SUCCINATE 25 MG TAB.SR.24H (FP) PO SCH (09:41)
[2021-10-27] MEDS: MEMANTINE HCL 10 MG TABLET (FP) PO SCH (09:41)
[2021-10-27] MEDS: ESCITALOPRAM OXALATE 10 MG TABLET PO SCH (09:41)
[2021-10-27] MEDS: TAMSULOSIN HCL 0.4 MG CAP PO SCH (09:41)
[2021-10-27] MEDS: FINASTERIDE 5 MG TABLET (FP) PO SCH (09:41)
[2021-10-27] MEDS: hydrALAZINE HCL 25 MG TABLET (FP) PO SCH (09:42)
[2021-10-27 16:17] VITALS: PULSE 70; TEMP 97.4
[2021-10-27 16:19] VITALS: BP 131/75
[2021-10-27] MEDS ORDERED: hydrALAZINE HCL 25 MG TABLET (FP) PO SCH (22:00)
== END 2021-10-27 17:42 | disposition home or self-care (01) | DRG 309 ==
LOC: JER 12:36 → JERBED 19:23 → OBSVTOIN 19:23 → J4W 10-25 03:51
PROVIDERS: ADMIT Hospitalist; ATTEND Internal Medicine
DX: R00.1 Bradycardia, unspecified (principal); I13.0 Hypertensive heart and chronic kidney disease with heart failure and stage 1 through stage 4 chronic kidney disease, or unspecified chronic kidney disease; I50.32 Chronic diastolic (congestive) heart failure; I31.3 Pericardial effusion (noninflammatory); I10 Essential (primary) hypertension; F03.90 Unspecified dementia, unspecified severity, without behavioral disturbance, psychotic disturbance, mood disturbance, and anxiety; E03.9 Hypothyroidism, unspecified; R31.9 Hematuria, unspecified; T50.905A Adverse effect of unspecified drugs, medicaments and biological substances, initial encounter; I48.11 Longstanding persistent atrial fibrillation; E78.5 Hyperlipidemia, unspecified; I95.9 Hypotension, unspecified; N18.9 Chronic kidney disease, unspecified; R63.0 Anorexia; Z68.26 Body mass index [BMI] 26.0-26.9, adult
CPT/HCPCS: 36415; 70450-TC; 71045-TC-FY; 74177-TC; 80048; 80053; 81003; 82803; 82962; 83735; 83880; 84100; 84436; 84439; 84443; 84479; 84481; 84484; 85025; 85027; 87086; 93005; 93010; 93306-TC; 97116-GP; 97162-GP; 99285-25; C9803-CS; J1644; Q9967; U0003; U0005

== ENCOUNTER 2022-01-13 11:22 | Emergency (ER) | payer OTHER ==
[2022-01-13 11:52] VITALS: BP 122/73; PULSE 68; TEMP 99.1; BMI 22.4
[2022-01-13] MEDS ORDERED: BEBTELOVIMAB (EUA) 175 MG/2 ML VIAL IVPUSH ONE (13:12)
== END 2022-01-13 17:00 | disposition home or self-care (01) ==
LOC: JER 11:22
DX: U07.1 COVID-19 (principal)
CPT/HCPCS: 96374; 99284-25

== ENCOUNTER 2022-02-19 11:47 | Emergency (ER) | payer OTHER ==
[2022-02-19 11:53] VITALS: BP 116/66; PULSE 60; RESP 18; TEMP 98.1; BMI 23.7
[2022-02-19] MEDS ORDERED: ACETAMINOPHEN 325 MG TABLET (FP) PO ONE (12:36)
[2022-02-19] MEDS ORDERED: ACETAMINOPHEN 325 MG TABLET (FP) ONE (12:38)
== END 2022-02-19 15:05 | disposition home or self-care (01) ==
LOC: JERFT 11:47
DX: M25.561 Pain in right knee (principal); M25.562 Pain in left knee
CPT/HCPCS: 73521-TC-FY; 73560-TC-LT-FY; 73560-TC-RT-FY; 99285-25

== ENCOUNTER 2022-04-03 10:12 | Inpatient (IN) | payer OTHER ==
[2022-04-03 13:23] LABS: BASO % 0.7 % (0-2.0); EOS % 3.8 % (0-4.5); HEMATOCRIT 41.4 % (35.4-49); HEMOGLOBIN 13.4 GM/dL (11.7-16.9); MCH 29.5 pg (25.7-33.7); MCHC 32.5 g/dl (32.0-35.9); MEAN CELL VOLUME 90.8 fl (80-96); MEAN PLT VOLUME 9.5 fl (7.5-11.1); MONO % 8.1 % (3.8-10.2); NEUT % 66.4 % (42.8-82.8); PLATELET COUNT 128 10^3/uL (134-434); RBC 4.56 M/mm3 (4.00-5.60); RDW 15.1 % (11.9-15.9); WHITE BLOOD COUNT 6.3 K/mm3 (4.0-10.0)
[2022-04-03 13:50] LABS: CALCIUM 8.7 mg/dL (8.5-10.1)
[2022-04-03 13:51] LABS: ALBUMIN 3.3 g/dl (3.4-5.0); BLOOD UREA NITROGEN 27.6 mg/dL (7-18); MAGNESIUM 2.3 mg/dL (1.8-2.4)
[2022-04-03 13:54] LABS: CREATININE 1.8 mg/dL (0.55-1.3); PHOSPHOROUS 3.4 mg/dL (2.5-4.9)
[2022-04-03 13:56] LABS: BILIRUBIN,TOTAL 0.6 mg/dL (0.2-1)
[2022-04-03 13:57] LABS: TOT PROT 6.2 g/dl (6.4-8.2)
[2022-04-03] MEDS ORDERED: ACETAMINOPHEN 325 MG TABLET (FP) PO PRN (16:03)
[2022-04-03 20:04] LABS: INR 1.09 (0.83-1.09); PROTHROMBIN TIME (PATIENT) 12.6 SEC (9.7-13.0)
[2022-04-03 20:07] LABS: ACTIVATED PTT 31.4 SECONDS (25.2-36.5)
[2022-04-03] MEDS: ALLOPURINOL 100 MG TABLET (FP) PO SCH (21:29)
[2022-04-03] MEDS: traZODone HCL 50 MG TABLET (FP) PO SCH (21:30)
[2022-04-03] MEDS: ATORVASTATIN CA 10 MG TABLET (FP) PO SCH (21:30)
[2022-04-03] MEDS: hydrALAZINE HCL 25 MG TABLET (FP) PO SCH (21:30)
[2022-04-03] MEDS: HEPARIN NA (PORCINE) 5,000 UNITS/ML 1ML VIAL SQ SCH (21:30)
[2022-04-03] MEDS ORDERED: FLU VACC QS2022-23(6MOS UP)/PF 60 MCG/0.5 ML SYRINGE IM ONE (22:22)
[2022-04-03 22:29] VITALS: BMI 24.8
[2022-04-04] MEDS: hydrALAZINE HCL 25 MG TABLET (FP) PO SCH ×3 (06:11→22:18)
[2022-04-04] MEDS: LEVOTHYROXINE NA 125 MCG TABLET (FP) PO SCH (06:11)
[2022-04-04 09:03] LABS: BASO % 0.6 % (0-2.0); EOS % 2.4 % (0-4.5); HEMOGLOBIN 13.4 GM/dL (11.7-16.9); MCH 32.2 pg (25.7-33.7); MCHC 34.3 g/dl (32.0-35.9); MEAN CELL VOLUME 93.8 fl (80-96); MEAN PLT VOLUME 9.8 fl (7.5-11.1); PLATELET COUNT 122 10^3/uL (134-434); RBC 4.15 M/mm3 (4.00-5.60); RDW 15.2 % (11.9-15.9); WHITE BLOOD COUNT 6.8 K/mm3 (4.0-10.0)
[2022-04-04 09:29] LABS: CALCIUM 8.7 mg/dL (8.5-10.1)
[2022-04-04 09:31] LABS: ALBUMIN 3.4 g/dl (3.4-5.0); BLOOD UREA NITROGEN 27.6 mg/dL (7-18)
[2022-04-04 09:32] LABS: CREATININE 1.6 mg/dL (0.55-1.3)
[2022-04-04 09:34] LABS: TOT PROT 6.2 g/dl (6.4-8.2)
[2022-04-04] MEDS: FINASTERIDE 5 MG TABLET (FP) PO SCH (10:46)
[2022-04-04] MEDS: metoPROLOL SUCCINATE 25 MG TAB.SR.24H (FP) PO SCH (10:46)
[2022-04-04] MEDS: ALLOPURINOL 100 MG TABLET (FP) PO SCH ×2 (10:46→22:27)
[2022-04-04] MEDS: ESCITALOPRAM OXALATE 10 MG TABLET PO SCH (10:46)
[2022-04-04] MEDS: HEPARIN NA (PORCINE) 5,000 UNITS/ML 1ML VIAL SQ SCH ×2 (10:46→22:27)
[2022-04-04] MEDS: MEMANTINE HCL 10 MG TABLET (FP) PO SCH ×2 (10:46→22:18)
[2022-04-04 11:22] LABS: URINE APPEARANCE CLEAR; URINE BILIRUBIN NEGATIVE (NEGATIVE); URINE COLOR YELLOW; URINE GLUCOSE (UA) NEGATIVE (NEGATIVE); URINE KETONE NEGATIVE (NEGATIVE); URINE LEUK ESTERASE NEGATIVE (NEGATIVE); URINE NITRITE NEGATIVE (NEGATIVE); URINE PROTEIN NEGATIVE (NEGATIVE); URINE UROBILINOGEN 0.2 mg/dL (0.2-1.0)
[2022-04-04] MEDS: traZODone HCL 50 MG TABLET (FP) PO SCH (22:18)
[2022-04-04] MEDS: ATORVASTATIN CA 10 MG TABLET (FP) PO SCH (22:27)
[2022-04-05] MEDS: hydrALAZINE HCL 25 MG TABLET (FP) PO SCH ×3 (06:10→21:55)
[2022-04-05] MEDS: LEVOTHYROXINE NA 125 MCG TABLET (FP) PO SCH (06:10)
[2022-04-05] MEDS: FINASTERIDE 5 MG TABLET (FP) PO SCH (10:02)
[2022-04-05] MEDS: MEMANTINE HCL 10 MG TABLET (FP) PO SCH ×2 (10:02→21:56)
[2022-04-05] MEDS: metoPROLOL SUCCINATE 25 MG TAB.SR.24H (FP) PO SCH (10:02)
[2022-04-05] MEDS: ALLOPURINOL 100 MG TABLET (FP) PO SCH ×2 (10:02→21:56)
[2022-04-05] MEDS: ESCITALOPRAM OXALATE 10 MG TABLET PO SCH (10:02)
[2022-04-05] MEDS: HEPARIN NA (PORCINE) 5,000 UNITS/ML 1ML VIAL SQ SCH ×2 (10:03→21:56)
[2022-04-05 10:11] VITALS: RESP 18
[2022-04-05 10:32] LABS: BLOOD UREA NITROGEN 27.8 mg/dL (7-18); CALCIUM 8.6 mg/dL (8.5-10.1)
[2022-04-05 10:33] LABS: ALBUMIN 3.3 g/dl (3.4-5.0)
[2022-04-05 10:36] LABS: CREATININE 1.5 mg/dL (0.55-1.3)
[2022-04-05 10:37] LABS: BILIRUBIN,TOTAL 0.8 mg/dL (0.2-1); TOT PROT 6.2 g/dl (6.4-8.2)
[2022-04-05] MEDS: traZODone HCL 50 MG TABLET (FP) PO SCH (21:55)
[2022-04-05] MEDS: ATORVASTATIN CA 10 MG TABLET (FP) PO SCH (21:56)
[2022-04-06] MEDS: hydrALAZINE HCL 25 MG TABLET (FP) PO SCH ×3 (06:14→21:25)
[2022-04-06] MEDS: LEVOTHYROXINE NA 125 MCG TABLET (FP) PO SCH (06:14)
[2022-04-06] MEDS: MEMANTINE HCL 10 MG TABLET (FP) PO SCH ×2 (09:39→21:27)
[2022-04-06] MEDS: metoPROLOL SUCCINATE 25 MG TAB.SR.24H (FP) PO SCH (09:39)
[2022-04-06] MEDS: HEPARIN NA (PORCINE) 5,000 UNITS/ML 1ML VIAL SQ SCH ×2 (09:39→21:28)
[2022-04-06] MEDS: ESCITALOPRAM OXALATE 10 MG TABLET PO SCH (09:39)
[2022-04-06] MEDS: FINASTERIDE 5 MG TABLET (FP) PO SCH (09:39)
[2022-04-06] MEDS: ALLOPURINOL 100 MG TABLET (FP) PO SCH ×2 (09:39→21:28)
[2022-04-06] MEDS: traZODone HCL 50 MG TABLET (FP) PO SCH (21:25)
[2022-04-06] MEDS: ATORVASTATIN CA 10 MG TABLET (FP) PO SCH (21:25)
[2022-04-07] MEDS: hydrALAZINE HCL 25 MG TABLET (FP) PO SCH ×3 (06:54→21:52)
[2022-04-07] MEDS: LEVOTHYROXINE NA 125 MCG TABLET (FP) PO SCH (06:54)
[2022-04-07] MEDS: MEMANTINE HCL 10 MG TABLET (FP) PO SCH ×2 (09:22→21:53)
[2022-04-07] MEDS: ESCITALOPRAM OXALATE 10 MG TABLET PO SCH (09:22)
[2022-04-07] MEDS: metoPROLOL SUCCINATE 25 MG TAB.SR.24H (FP) PO SCH (09:22)
[2022-04-07] MEDS: FINASTERIDE 5 MG TABLET (FP) PO SCH (09:22)
[2022-04-07] MEDS: HEPARIN NA (PORCINE) 5,000 UNITS/ML 1ML VIAL SQ SCH ×2 (09:22→21:51)
[2022-04-07] MEDS: ALLOPURINOL 100 MG TABLET (FP) PO SCH ×2 (09:22→21:51)
[2022-04-07 10:58] LABS: BLOOD UREA NITROGEN 23.4 mg/dL (7-18); CALCIUM 8.7 mg/dL (8.5-10.1)
[2022-04-07 11:02] LABS: CREATININE 1.6 mg/dL (0.55-1.3)
[2022-04-07] MEDS ORDERED: QUEtiapine FUMARATE 100 MG TABLET (FP) ONE (21:35)
[2022-04-07] MEDS: traZODone HCL 50 MG TABLET (FP) PO SCH (21:52)
[2022-04-07] MEDS: ATORVASTATIN CA 10 MG TABLET (FP) PO SCH (21:52)
[2022-04-07] MEDS ORDERED: QUEtiapine FUMARATE 300 MG TABLET PO SCH (22:00)
[2022-04-08] MEDS: hydrALAZINE HCL 25 MG TABLET (FP) PO SCH (06:05)
[2022-04-08] MEDS: LEVOTHYROXINE NA 125 MCG TABLET (FP) PO SCH (06:05)
[2022-04-08] MEDS: ESCITALOPRAM OXALATE 10 MG TABLET PO SCH (09:35)
[2022-04-08] MEDS: ALLOPURINOL 100 MG TABLET (FP) PO SCH (09:35)
[2022-04-08] MEDS: metoPROLOL SUCCINATE 25 MG TAB.SR.24H (FP) PO SCH (09:35)
[2022-04-08] MEDS: MEMANTINE HCL 10 MG TABLET (FP) PO SCH (09:35)
[2022-04-08] MEDS: HEPARIN NA (PORCINE) 5,000 UNITS/ML 1ML VIAL SQ SCH (09:36)
[2022-04-08] MEDS: FINASTERIDE 5 MG TABLET (FP) PO SCH (09:36)
[2022-04-08 11:51] VITALS: BP 116/69; PULSE 68; TEMP 97.7
== END 2022-04-08 12:36 | DRG 884 ==
LOC: JER 10:12 → JERBED 15:38 → OBSVTOIN 16:03 → J6S 20:33
PROVIDERS: ADMIT Internal Medicine; ATTEND Internal Medicine
DX: F03.90 Unspecified dementia, unspecified severity, without behavioral disturbance, psychotic disturbance, mood disturbance, and anxiety (principal); I48.11 Longstanding persistent atrial fibrillation; E03.9 Hypothyroidism, unspecified; D69.6 Thrombocytopenia, unspecified; R33.8 Other retention of urine; M10.9 Gout, unspecified; N40.0 Benign prostatic hyperplasia without lower urinary tract symptoms; I12.9 Hypertensive chronic kidney disease with stage 1 through stage 4 chronic kidney disease, or unspecified chronic kidney disease; N18.9 Chronic kidney disease, unspecified; R27.0 Ataxia, unspecified; R41.82 Altered mental status, unspecified
CPT/HCPCS: 36415; 70450-TC; 71045-TC-FY; 80048; 80053; 81003; 82306; 82550; 82607; 82747; 82962; 83735; 84100; 84443; 84484; 85014; 85025; 85610; 85730; 86850; 86900; 86901; 87086; 93005; 93010; 97116-GP; 97162-GP; 99285-25; C9803-CS; G0008; G0378; J1644; Q2036; U0003; U0005

== ENCOUNTER 2022-09-12 17:34 | Inpatient (IN) | payer OTHER ==
[2022-09-12 17:46] VITALS: BMI 24.8
[2022-09-12 18:42] LABS: INR 1.26 (0.83-1.09); PROTHROMBIN TIME (PATIENT) 14.6 SEC (9.7-13.0)
[2022-09-12 18:44] LABS: ACTIVATED PTT 33.9 SECONDS (25.2-36.5)
[2022-09-12 18:46] LABS: BASO % 0.8 % (0-2.0); EOS % 0.5 % (0-4.5); HEMATOCRIT 32.3 % (35.4-49); HEMOGLOBIN 10.8 GM/dL (11.7-16.9); LYMPH % 14.7 % (8-40); MCH 28.8 pg (25.7-33.7); MCHC 33.6 g/dl (32.0-35.9); MEAN CELL VOLUME 85.7 fl (80-96); MEAN PLT VOLUME 8.9 fl (7.5-11.1); MONO % 14.3 % (3.8-10.2); NEUT % 69.7 % (42.8-82.8); PLATELET COUNT 168 10^3/uL (134-434); RBC 3.77 M/mm3 (4.00-5.60); RDW 16.9 % (11.9-15.9); WHITE BLOOD COUNT 8.2 K/mm3 (4.0-10.0)
[2022-09-12 18:53] LABS: ALBUMIN 2.8 g/dl (3.4-5.0); BLOOD UREA NITROGEN 28.6 mg/dL (7-18); CALCIUM 8.3 mg/dL (8.5-10.1)
[2022-09-12 18:56] LABS: CREATININE 1.8 mg/dL (0.55-1.3)
[2022-09-12 18:58] LABS: BILIRUBIN,TOTAL 0.8 mg/dL (0.2-1); TOT PROT 5.9 g/dl (6.4-8.2)
[2022-09-12 19:00] LABS: EPI CELLS 7 /uL (0-25.1); HYALINE CASTS 3 /uL (0-3.1); PH,URINE >= 9.0 (5.0-8.0); URINE APPEARANCE TURBID; URINE BACTERIA >9,000 /uL (0-1359); URINE BILIRUBIN NEGATIVE (NEGATIVE); URINE COLOR YELLOW; URINE GLUCOSE (UA) NEGATIVE (NEGATIVE); URINE KETONE NEGATIVE (NEGATIVE); URINE LEUK ESTERASE 3+ (NEGATIVE); URINE NITRITE NEGATIVE (NEGATIVE); URINE PROTEIN 3+ (NEGATIVE); URINE RBC 44 /uL (0-23.9); URINE WBC 1911 /uL (0-25.8)
[2022-09-12] MEDS ORDERED: ACETAMINOPHEN 1000 MG/100 ML BAG IVPB ONE (19:03)
[2022-09-12] MEDS ORDERED: CEFTRIAXONE 1 GM/50 ML BAG ONE (19:31)
[2022-09-12] MEDS ORDERED: ACETAMINOPHEN INJECTION 100 ML IVPB ONE (19:31)
[2022-09-12 19:37] LABS: URIC ACID 4.5 mg/dL (2.6-7.2)
[2022-09-13] MEDS ORDERED: COLCHICINE 0.6 MG TAB PO ONE (01:40)
[2022-09-13] MEDS ORDERED: COLCHICINE 0.6 MG TAB ONE (02:24)
[2022-09-13] MEDS: COLCHICINE 0.6 MG TAB PO ONE ×2 (02:30→02:33)
[2022-09-13 07:46] LABS: HEMATOCRIT 32.4 % (35.4-49); HEMOGLOBIN 11.4 GM/dL (11.7-16.9); MEAN CELL VOLUME 85.7 fl (80-96); MEAN PLT VOLUME 8.6 fl (7.5-11.1); PLATELET COUNT 164 10^3/uL (134-434); RBC 3.78 M/mm3 (4.00-5.60); RDW 16.6 % (11.9-15.9); WHITE BLOOD COUNT 5.3 K/mm3 (4.0-10.0)
[2022-09-13 08:17] LABS: ALBUMIN 2.8 g/dl (3.4-5.0); CALCIUM 8.2 mg/dL (8.5-10.1)
[2022-09-13 08:18] LABS: BLOOD UREA NITROGEN 24.7 mg/dL (7-18); MAGNESIUM 1.8 mg/dL (1.8-2.4)
[2022-09-13 08:20] LABS: CREATININE 1.3 mg/dL (0.55-1.3)
[2022-09-13 08:21] LABS: PHOSPHOROUS 3.5 mg/dL (2.5-4.9)
[2022-09-13 08:22] LABS: BILIRUBIN,TOTAL 0.8 mg/dL (0.2-1); TOT PROT 5.9 g/dl (6.4-8.2)
[2022-09-13] MEDS: CEFTRIAXONE 1 GM in DEXTROSE 5%-WATER - 50 ML IVPB SCH (10:00)
[2022-09-13] MEDS ORDERED: ENOXAPARIN NA (PORCINE) 40 MG/0.4 ML DISP.SYRIN SQ SCH (10:00)
[2022-09-13] MEDS: ESCITALOPRAM OXALATE 10 MG TABLET PO SCH ×2 (10:57→21:12)
[2022-09-13] MEDS: COLCHICINE 0.6 MG TAB PO SCH (10:57)
[2022-09-13] MEDS: FINASTERIDE 5 MG TABLET (FP) PO SCH (10:58)
[2022-09-13] MEDS: MEMANTINE HCL 10 MG TABLET (FP) PO SCH ×2 (10:58→21:13)
[2022-09-13] MEDS: ALLOPURINOL 100 MG TABLET (FP) PO SCH ×2 (10:59→21:13)
[2022-09-13] MEDS: LEVOTHYROXINE NA 125 MCG TABLET (FP) PO SCH (11:06)
[2022-09-13] MEDS ORDERED: METOPROLOL TARTRATE 5 MG/5 ML VIAL ONE ×2 (11:13→18:12)
[2022-09-13] MEDS ORDERED: CEFTRIAXONE 1 GM/50 ML BAG ONE (11:14)
[2022-09-13] MEDS: METOPROLOL TARTRATE 5 MG/5 ML VIAL IVPUSH SCH ×3 (11:40→21:08)
[2022-09-13] MEDS: HEPARIN NA (PORCINE) 5,000 UNITS/ML 1ML VIAL SQ SCH ×3 (11:40→21:55)
[2022-09-13] MEDS ORDERED: hydrALAZINE HCL 20 MG/ML VIAL IVPUSH PRN (12:46)
[2022-09-13] MEDS ORDERED: HEPARIN NA (PORCINE) 5,000 UNITS/ML 1ML VIAL ONE (18:12)
[2022-09-13] MEDS ORDERED: ATORVASTATIN CA 10 MG TABLET (FP) PO SCH (22:00)
[2022-09-14] MEDS: DEXTROSE 5%-LACTATED RINGERS 1,000 ML IV SCH ×2 (02:21→18:43)
[2022-09-14] MEDS: METOPROLOL TARTRATE 5 MG/5 ML VIAL IVPUSH SCH ×4 (03:08→22:09)
[2022-09-14] MEDS: HEPARIN NA (PORCINE) 5,000 UNITS/ML 1ML VIAL SQ SCH ×3 (06:43→22:09)
[2022-09-14] MEDS: ALLOPURINOL 100 MG TABLET (FP) PO SCH ×2 (09:24→22:07)
[2022-09-14] MEDS: FINASTERIDE 5 MG TABLET (FP) PO SCH (09:24)
[2022-09-14] MEDS: ESCITALOPRAM OXALATE 10 MG TABLET PO SCH ×2 (09:24→22:08)
[2022-09-14] MEDS: MEMANTINE HCL 10 MG TABLET (FP) PO SCH ×2 (09:24→22:08)
[2022-09-14] MEDS: CEFTRIAXONE 1 GM in DEXTROSE 5%-WATER - 50 ML IVPB SCH (09:25)
[2022-09-14] MEDS: LEVOTHYROXINE NA 125 MCG TABLET (FP) PO SCH (09:28)
[2022-09-14] MEDS: COLCHICINE 0.6 MG TAB PO SCH (09:29)
[2022-09-14] MEDS ORDERED: POTASSIUM CHLORIDE ORAL LIQUID 20 MEQ/15 ML PO ONE (16:10)
[2022-09-15] MEDS: LEVOTHYROXINE NA 125 MCG TABLET (FP) PO SCH (06:05)
[2022-09-15] MEDS: HEPARIN NA (PORCINE) 5,000 UNITS/ML 1ML VIAL SQ SCH ×3 (06:05→23:13)
[2022-09-15] MEDS: DEXTROSE 5%-LACTATED RINGERS 1,000 ML IV SCH (08:52)
[2022-09-15] MEDS: FINASTERIDE 5 MG TABLET (FP) PO SCH (09:06)
[2022-09-15] MEDS: MEMANTINE HCL 10 MG TABLET (FP) PO SCH ×2 (09:06→23:13)
[2022-09-15] MEDS: ESCITALOPRAM OXALATE 10 MG TABLET PO SCH ×2 (09:06→23:12)
[2022-09-15] MEDS: ALLOPURINOL 100 MG TABLET (FP) PO SCH ×2 (09:06→23:12)
[2022-09-15] MEDS: metoPROLOL SUCCINATE 25 MG TAB.SR.24H (FP) PO SCH (09:06)
[2022-09-15] MEDS: CEFTRIAXONE 1 GM in DEXTROSE 5%-WATER - 50 ML IVPB SCH (09:07)
[2022-09-15 11:00] LABS: EOS % 3.5 % (0-4.5); HEMATOCRIT 32.8 % (35.4-49); HEMOGLOBIN 11.7 GM/dL (11.7-16.9); LYMPH % 17.6 % (8-40); MCH 30.7 pg (25.7-33.7); MCHC 35.6 g/dl (32.0-35.9); MEAN CELL VOLUME 86.2 fl (80-96); MEAN PLT VOLUME 8.4 fl (7.5-11.1); MONO % 10.3 % (3.8-10.2); NEUT % 67.6 % (42.8-82.8); PLATELET COUNT 191 10^3/uL (134-434); RBC 3.81 M/mm3 (4.00-5.60); RDW 16.1 % (11.9-15.9); WHITE BLOOD COUNT 4.8 K/mm3 (4.0-10.0)
[2022-09-15 11:14] LABS: ALBUMIN 2.6 g/dl (3.4-5.0); CALCIUM 8.3 mg/dL (8.5-10.1); MAGNESIUM 1.7 mg/dL (1.8-2.4)
[2022-09-15 11:17] LABS: CREATININE 1.2 mg/dL (0.55-1.3); PHOSPHOROUS 3.4 mg/dL (2.5-4.9)
[2022-09-15 11:19] LABS: BILIRUBIN,TOTAL 0.6 mg/dL (0.2-1); TOT PROT 5.6 g/dl (6.4-8.2)
[2022-09-15] MEDS ORDERED: MAGNESIUM SULF 50% (8.12 MEQ/2 ML-1 GM VIAL) IVPB ONE (13:51)
[2022-09-15] MEDS ORDERED: MAGNESIUM OXIDE 400 MG TABLET (FP) PO ONE (15:55)
[2022-09-16] MEDS: HEPARIN NA (PORCINE) 5,000 UNITS/ML 1ML VIAL SQ SCH ×2 (05:47→14:13)
[2022-09-16] MEDS: LEVOTHYROXINE NA 125 MCG TABLET (FP) PO SCH (06:19)
[2022-09-16 08:41] LABS: BASO % 0.9 % (0-2.0); EOS % 2.5 % (0-4.5); HEMATOCRIT 32.3 % (35.4-49); HEMOGLOBIN 11.6 GM/dL (11.7-16.9); LYMPH % 19.1 % (8-40); MCH 31.1 pg (25.7-33.7); MCHC 35.8 g/dl (32.0-35.9); MEAN CELL VOLUME 86.7 fl (80-96); MEAN PLT VOLUME 8.3 fl (7.5-11.1); MONO % 9.1 % (3.8-10.2); NEUT % 68.4 % (42.8-82.8); PLATELET COUNT 191 10^3/uL (134-434); RBC 3.72 M/mm3 (4.00-5.60); RDW 16.5 % (11.9-15.9); WHITE BLOOD COUNT 6.1 K/mm3 (4.0-10.0)
[2022-09-16 08:55] LABS: ALBUMIN 2.6 g/dl (3.4-5.0); CALCIUM 8.1 mg/dL (8.5-10.1)
[2022-09-16 08:56] LABS: BLOOD UREA NITROGEN 18.6 mg/dL (7-18)
[2022-09-16 08:59] LABS: CREATININE 1.2 mg/dL (0.55-1.3)
[2022-09-16 09:00] LABS: BILIRUBIN,TOTAL 0.6 mg/dL (0.2-1)
[2022-09-16 09:03] LABS: TOT PROT 5.5 g/dl (6.4-8.2)
[2022-09-16 09:11] VITALS: PULSE 64; RESP 16
[2022-09-16] MEDS: ALLOPURINOL 100 MG TABLET (FP) PO SCH (09:12)
[2022-09-16] MEDS: ESCITALOPRAM OXALATE 10 MG TABLET PO SCH (09:13)
[2022-09-16] MEDS: metoPROLOL SUCCINATE 25 MG TAB.SR.24H (FP) PO SCH (09:13)
[2022-09-16] MEDS: MEMANTINE HCL 10 MG TABLET (FP) PO SCH (09:14)
[2022-09-16] MEDS: FINASTERIDE 5 MG TABLET (FP) PO SCH (09:14)
[2022-09-16] MEDS: CEFTRIAXONE 1 GM in DEXTROSE 5%-WATER - 50 ML IVPB SCH (09:14)
[2022-09-16 12:47] VITALS: BP 116/64; TEMP 97.6
== END 2022-09-16 14:33 | DRG 689 ==
LOC: JER 17:34 → JERBED 21:22 → J6S 09-13 18:37 → OBSVTOIN 09-14 10:08 → J6S 09-14 12:38
PROVIDERS: ADMIT Internal Medicine; ATTEND Internal Medicine
DX: N39.0 Urinary tract infection, site not specified (principal); G93.41 Metabolic encephalopathy; N17.9 Acute kidney failure, unspecified; I48.11 Longstanding persistent atrial fibrillation; E03.9 Hypothyroidism, unspecified; I48.91 Unspecified atrial fibrillation; M10.9 Gout, unspecified; R13.10 Dysphagia, unspecified; B96.4 Proteus (mirabilis) (morganii) as the cause of diseases classified elsewhere; G30.9 Alzheimer's disease, unspecified; M11.20 Other chondrocalcinosis, unspecified site; F41.9 Anxiety disorder, unspecified; R26.81 Unsteadiness on feet; R29.6 Repeated falls; E87.6 Hypokalemia; E83.42 Hypomagnesemia; I12.9 Hypertensive chronic kidney disease with stage 1 through stage 4 chronic kidney disease, or unspecified chronic kidney disease; N18.30 Chronic kidney disease, stage 3 unspecified; M25.60 Stiffness of unspecified joint, not elsewhere classified; M17.12 Unilateral primary osteoarthritis, left knee; M25.462 Effusion, left knee; F02.80 Dementia in other diseases classified elsewhere, unspecified severity, without behavioral disturbance, psychotic disturbance, mood disturbance, and anxiety
CPT/HCPCS: 0241U-QW; 36415; 71045-TC-FY; 72170-TC-FY; 73110-TC-RT-FY; 73130-TC-RT-FY; 73562-TC-LT-FY; 73562-TC-RT-FY; 74230-TC-FY; 80053; 81003; 82550; 82607; 82962; 83735; 84100; 84439; 84443; 84484; 84550; 85025; 85027; 85610; 85730; 86850; 86900; 86901; 87086; 87186; 92611-GN; 93005; 93010; 97116-GP; 97162-GP; 99285-25; C9803-CS; G0378; J1644; U0003; U0005

== ENCOUNTER 2024-03-02 13:56 | Inpatient (IN) | payer OTHER ==
[2024-03-02 16:47] LABS: BASO % 1.3 % (0-2.0); EOS % 4.4 % (0-4.5); HEMATOCRIT 34.7 % (35.4-49); HEMOGLOBIN 11.7 GM/dL (11.7-16.9); LYMPH % 17.9 % (8-40); MCH 29.4 pg (25.7-33.7); MCHC 33.7 g/dl (32.0-35.9); MEAN CELL VOLUME 87.1 fl (80-96); MEAN PLT VOLUME 7.9 fl (7.5-11.1); MONO % 9.9 % (3.8-10.2); NEUT % 66.5 % (42.8-82.8); PLATELET COUNT 96 10^3/uL (134-434); RBC 3.98 M/mm3 (4.00-5.60); RDW 15.8 % (11.9-15.9); WHITE BLOOD COUNT 5.3 K/mm3 (4.0-10.0)
[2024-03-02 16:56] LABS: INR 1.1 (0.83-1.09); PROTHROMBIN TIME (PATIENT) 12.4 SEC (9.7-13.0)
[2024-03-02 16:58] LABS: ACTIVATED PTT 40.7 SECONDS (25.2-36.5)
[2024-03-02 17:12] LABS: POTASSIUM 4.2 mmol/L (3.5-5.1)
[2024-03-02 17:16] LABS: BLOOD UREA NITROGEN 18.7 mg/dL (7-18); CALCIUM 8.5 mg/dL (8.5-10.1)
[2024-03-02 17:19] LABS: CREATININE 1.4 mg/dL (0.55-1.3)
[2024-03-02 17:21] LABS: BILIRUBIN,TOTAL 0.8 mg/dL (0.2-1); TOT PROT 6.1 g/dl (6.4-8.2)
[2024-03-02] MEDS ORDERED: AMPICILLIN NA/SULBACTAM NA 3 GM/100 ML BAG IVPB ONE (18:23)
[2024-03-02] MEDS: AMPICILLIN NA/SULBACTAM NA 3 GM in SODIUM CHLORIDE 100 ML IVPB ONE (18:32)
[2024-03-02] MEDS ORDERED: ATORVASTATIN CA 10 MG TABLET (FP) ONE (21:18)
[2024-03-02] MEDS ORDERED: ENOXAPARIN NA (PORCINE) 40 MG/0.4 ML DISP.SYRIN SQ ONE (21:19)
[2024-03-02] MEDS: ENOXAPARIN NA (PORCINE) 40 MG/0.4 ML DISP.SYRIN SQ SCH (21:54)
[2024-03-02] MEDS: ATORVASTATIN CA 10 MG TABLET (FP) PO SCH (21:55)
[2024-03-03] MEDS: LEVOTHYROXINE NA 125 MCG TABLET (FP) PO SCH (07:42)
[2024-03-03] MEDS: AMPICILLIN NA/SULBACTAM NA 1.5 GM in SODIUM CHLORIDE 100 ML IVPB SCH (08:41)
[2024-03-03] MEDS: MEMANTINE HCL 10 MG TABLET (FP) PO SCH (09:38)
[2024-03-03 10:41] LABS: HEMATOCRIT 35.1 % (35.4-49); HEMOGLOBIN 12.2 GM/dL (11.7-16.9); MCH 31.4 pg (25.7-33.7); MCHC 34.9 g/dl (32.0-35.9); MEAN CELL VOLUME 90.2 fl (80-96); MEAN PLT VOLUME 8.6 fl (7.5-11.1); PLATELET COUNT 101 10^3/uL (134-434); RBC 3.89 M/mm3 (4.00-5.60); RDW 15.8 % (11.9-15.9); WHITE BLOOD COUNT 4.6 K/mm3 (4.0-10.0)
[2024-03-03 11:05] LABS: POTASSIUM 3.4 mmol/L (3.5-5.1)
[2024-03-03 11:09] LABS: CALCIUM 8.2 mg/dL (8.5-10.1)
[2024-03-03 11:10] LABS: BLOOD UREA NITROGEN 19.2 mg/dL (7-18); MAGNESIUM 2.1 mg/dL (1.8-2.4)
[2024-03-03 11:13] LABS: CREATININE 1.4 mg/dL (0.55-1.3)
[2024-03-03 17:08] VITALS: BMI 20.5
[2024-03-04] MEDS ORDERED: ALBUTEROL SO4 HFA INHALER IH PRN (12:31)
[2024-03-06 10:38] LABS: BASO % 1.5 % (0-2.0); EOS % 2.1 % (0-4.5); HEMOGLOBIN 12.2 GM/dL (11.7-16.9); LYMPH % 19.6 % (8-40); MCH 34.1 pg (25.7-33.7); MCHC 36.9 g/dl (32.0-35.9); MEAN CELL VOLUME 92.2 fl (80-96); MEAN PLT VOLUME 9.3 fl (7.5-11.1); MONO % 8.4 % (3.8-10.2); NEUT % 68.4 % (42.8-82.8); PLATELET COUNT 109 10^3/uL (134-434); RBC 3.58 M/mm3 (4.00-5.60); RDW 15.7 % (11.9-15.9); WHITE BLOOD COUNT 5.1 K/mm3 (4.0-10.0)
[2024-03-06 10:56] LABS: POTASSIUM 3.9 mmol/L (3.5-5.1)
[2024-03-06 10:58] LABS: CALCIUM 8.2 mg/dL (8.5-10.1)
[2024-03-06 10:59] LABS: ALBUMIN 2.9 g/dl (3.4-5.0); BLOOD UREA NITROGEN 24.5 mg/dL (7-18)
[2024-03-06 11:02] LABS: CREATININE 1.4 mg/dL (0.55-1.3)
[2024-03-06 11:03] LABS: BILIRUBIN,TOTAL 0.6 mg/dL (0.2-1)
[2024-03-07 09:54] LABS: BASO % 0.7 % (0-2.0); EOS % 1.5 % (0-4.5); HEMATOCRIT 35.3 % (35.4-49); HEMOGLOBIN 12.3 GM/dL (11.7-16.9); LYMPH % 15.4 % (8-40); MCH 31.2 pg (25.7-33.7); MCHC 34.9 g/dl (32.0-35.9); MEAN CELL VOLUME 89.4 fl (80-96); MEAN PLT VOLUME 8.7 fl (7.5-11.1); MONO % 8.2 % (3.8-10.2); NEUT % 74.2 % (42.8-82.8); PLATELET COUNT 112 10^3/uL (134-434); RBC 3.95 M/mm3 (4.00-5.60); RDW 15.6 % (11.9-15.9); WHITE BLOOD COUNT 5.6 K/mm3 (4.0-10.0)
[2024-03-07 10:02] LABS: POTASSIUM 4.2 mmol/L (3.5-5.1)
[2024-03-07 10:06] LABS: CALCIUM 8.5 mg/dL (8.5-10.1)
[2024-03-07 10:07] LABS: BLOOD UREA NITROGEN 23.8 mg/dL (7-18)
[2024-03-07 10:10] LABS: CREATININE 1.4 mg/dL (0.55-1.3)
[2024-03-07 10:11] LABS: BILIRUBIN,TOTAL 0.6 mg/dL (0.2-1)
[2024-03-07 10:12] LABS: TOT PROT 6.1 g/dl (6.4-8.2)
[2024-03-07] MEDS: AMOX TR/POT CLAV 500MG/125MG TABLETS (FP) PO SCH (15:48)
[2024-03-07 15:59] VITALS: BP 165/95; PULSE 76; RESP 20; TEMP 96.9
[2024-03-08] MEDS ORDERED: amLODIPine BESYLATE 5 MG TABLET (FP) PO SCH (10:00)
== END 2024-03-07 16:34 | disposition home health service (06) | DRG 178 ==
LOC: JER 13:56 → JERBED 19:45 → OBSVTOIN 20:58 → J5S 23:47
PROVIDERS: ADMIT Internal Medicine
DX: J69.0 Pneumonitis due to inhalation of food and vomit (principal); I48.11 Longstanding persistent atrial fibrillation; I10 Essential (primary) hypertension; F02.80 Dementia in other diseases classified elsewhere, unspecified severity, without behavioral disturbance, psychotic disturbance, mood disturbance, and anxiety; E03.9 Hypothyroidism, unspecified; G30.9 Alzheimer's disease, unspecified; E78.5 Hyperlipidemia, unspecified; Z85.12 Personal history of malignant neoplasm of trachea
CPT/HCPCS: 0241U-QW; 36415; 71045-TC-FY; 71250-TC; 74230-TC-FY; 80048; 80053; 83735; 84100; 84484; 85025; 85027; 85610; 85730; 86850; 86900; 86901; 87086; 92611-GN; 93005; 93010; 97116-GP; 97162-GP; 99285-25; G0378

== ENCOUNTER 2024-12-26 06:21 | Inpatient (IN) | payer OTHER ==
[2024-12-26 07:14] LABS: BG HCT 39.0 % (35.4-49); VENOUS BASE EXCESS 0.3 mmol/L (-2-2); VENOUS O2 SATURATION 84.8 % (70-80); VENOUS PCO2 32.9 mmHg (38-52); VENOUS PH 7.468 (7.310-7.410)
[2024-12-26 07:23] LABS: EOSINOPHIL % 0.1 % (0.8-7.0); EOSINOPHILS # 0.01 x10^3/uL (0.04-0.54); MONOCYTE # 0.58 x10^3/uL (0.30-0.82)
[2024-12-26 07:25] LABS: ABSOLUTE IMMATURE GRANULOCYTES 0.04 x10^3/uL (0.0-0.031); BASOPHILS # 0.04 x10^3/uL (0.01-0.08); IMMATURE PLATELET FRACTION # 3.90 x10^3/uL; MCHC 38.6 g/dl (32.3-36.5); MEAN CELL VOLUME 93.0 fl (79.0-92.2); MEAN PLT VOLUME 11.3 fl (9.4-12.4); MONOCYTE % 5.3 % (5.3-12.2); RDW 15.1 % (12.2-16.6)
[2024-12-26 07:37] LABS: CO2 28.0 mmol/L (21-32); GLUCOSE,RANDOM 126.0 mg/dL (74-106)
[2024-12-26 07:40] LABS: CREATININE 1.4 mg/dL (0.55-1.3); SGOT/AST 18.0 U/L (15-37); SGPT/ALT 18.0 U/L (13-61)
[2024-12-26 07:42] LABS: TOT PROT 6.3 g/dl (6.4-8.2)
[2024-12-26 07:43] LABS: ALK PHOS 115.0 U/L (45-117)
[2024-12-26 07:45] LABS: N-TERMINAL BNP 1972.6 pg/ml (5-450)
[2024-12-26] MEDS ORDERED: ACETAMINOPHEN INJECTION 100 ML ONE (07:55)
[2024-12-26] MEDS: ACETAMINOPHEN 1000 MG/100 ML BAG IVPB ONE ×2 (08:13→23:32)
[2024-12-26] MEDS: LACTATED RINGERS SOLUTION 1000 ML INFUS.BAG IV ONE (08:13)
[2024-12-26] MEDS: DEXTROSE 5%-0.45% SALINE 1,000 ML IV SCH (08:44)
[2024-12-26 09:11] LABS: INR 1.37 (0.83-1.09); PROTHROMBIN TIME (PATIENT) 15.1 SEC (9.7-13.0)
[2024-12-26 09:14] LABS: ACTIVATED PTT 36.3 SECONDS (25.2-36.5)
[2024-12-26] MEDS ORDERED: ALBUTEROL SO4 2.5/IPRATROPIUM 0.5 INH SOL 3 ML VIAL.NEB. NEB ONE (09:32)
[2024-12-26] MEDS: ALBUTEROL SO4 2.5/IPRATROPIUM 0.5 INH SOL 3 ML VIAL.NEB. NEB ONE (09:37)
[2024-12-26] MEDS ORDERED: CEFTRIAXONE 1 GM/50 ML BAG ONE (11:03)
[2024-12-26] MEDS: CEFTRIAXONE 1 GM in DEXTROSE 5%-WATER - 100 ML IVPB ONE (11:09)
[2024-12-26 11:25] LABS: EPI CELLS 5 /uL (0-25.1); HYALINE CASTS 1 /uL (0-3.1); URINE APPEARANCE CLEAR; URINE BACTERIA 3 /uL (0-1359); URINE BILIRUBIN 1+ (NEGATIVE); URINE COLOR DK YELLOW; URINE GLUCOSE (UA) NEGATIVE (NEGATIVE); URINE KETONE TRACE (NEGATIVE); URINE LEUK ESTERASE NEGATIVE (NEGATIVE); URINE NITRITE NEGATIVE (NEGATIVE); URINE PROTEIN 1+ (NEGATIVE); URINE RBC 123 /uL (0-23.9); URINE UROBILINOGEN 1.0 mg/dL (0.2-1.0); URINE WBC 20 /uL (0-25.8)
[2024-12-26] MEDS ORDERED: AZITHROMYCIN IVPB 500 MG/250 ML BAG IVPB ONE (12:09)
[2024-12-26] MEDS: AZITHROMYCIN IVPB 500 MG in DEXTROSE 5%-WATER - 250 ML IVPB ONE (12:18)
[2024-12-26 14:06] LABS: HCV DIAGNOSTIC IN-HOUSE W/RFLX NON-REACTIVE (NONREACTIVE)
[2024-12-26] MEDS: SODIUM CHLORIDE 1,000 ML IV SCH (15:44)
[2024-12-26] MEDS: HEPARIN NA (PORCINE) 5,000 UNITS/ML 1ML VIAL SQ SCH (15:59)
[2024-12-26] MEDS: levETIRAcetam 500 MG/5 ML INJECTION VIAL IVPB ONE (16:12)
[2024-12-26] MEDS: PIPERACILLIN/TAZOB 3.375 GM 3.375 GM in DEXTROSE 5%-WATER - 50 ML IVPB SCH (17:32)
[2024-12-26 21:05] LABS: HIV INTERPRETATION NEGATIVE (NEGATIVE)
[2024-12-26] MEDS: levETIRAcetam 500 MG/5 ML INJECTION VIAL IVPB SCH (22:17)
[2024-12-27] MEDS ORDERED: PIPERACILLIN/TAZOBACTAM 3.375 GM VIAL IVPB ONE (01:18)
[2024-12-27 10:20] LABS: ABSOLUTE IMMATURE GRANULOCYTES 0.04 x10^3/uL (0.0-0.031); BASOPHILS # 0.01 x10^3/uL (0.01-0.08); EOSINOPHIL % 0.0 % (0.8-7.0); EOSINOPHILS # 0.00 x10^3/uL (0.04-0.54); MCHC 34.4 g/dl (32.3-36.5); MEAN CELL VOLUME 91.6 fl (79.0-92.2); MEAN PLT VOLUME 11.3 fl (9.4-12.4); MONOCYTE # 0.58 x10^3/uL (0.30-0.82); MONOCYTE % 6.0 % (5.3-12.2); RDW 15.0 % (12.2-16.6)
[2024-12-27 11:00] LABS: CO2 29.0 mmol/L (21-32); GLUCOSE,RANDOM 89.0 mg/dL (74-106)
[2024-12-27 11:03] LABS: CREATININE 1.3 mg/dL (0.55-1.3); SGOT/AST 28.0 U/L (15-37); SGPT/ALT 17.0 U/L (13-61)
[2024-12-27 11:05] LABS: TOT PROT 5.7 g/dl (6.4-8.2)
[2024-12-27 11:06] LABS: ALK PHOS 98.0 U/L (45-117)
[2024-12-27] MEDS: DEXTROSE 5%-0.45% SALINE 1,000 ML IV SCH (15:39)
[2024-12-27] MEDS: PIPERACILLIN/TAZOB 3.375 GM 3.375 GM in DEXTROSE 5%-WATER - 50 ML IVPB SCH (19:16)
[2024-12-27] MEDS: ALBUTEROL SO4 2.5/IPRATROPIUM 0.5 INH SOL 3 ML VIAL.NEB. NEB SCH (20:05)
[2024-12-27] MEDS: AMINO ACIDS 4.25%/D5W 1,000 ML IV SCH (20:43)
[2024-12-28] MEDS: LEVOTHYROXINE SODIUM 100 MCG 5 ML VIAL IVPUSH SCH (06:40)
[2024-12-28 08:40] LABS: MCHC 36.9 g/dl (32.3-36.5); MEAN CELL VOLUME 90.7 fl (79.0-92.2); MEAN PLT VOLUME 11.5 fl (9.4-12.4); RDW 15.1 % (12.2-16.6)
[2024-12-28 09:00] LABS: GLUCOSE,RANDOM 104.0 mg/dL (74-106)
[2024-12-28 09:02] LABS: CREATININE 1.2 mg/dL (0.55-1.3); SGPT/ALT 18.0 U/L (13-61)
[2024-12-28 09:03] LABS: CO2 25.0 mmol/L (21-32); SGOT/AST 28.0 U/L (15-37)
[2024-12-28 09:04] LABS: TOT PROT 5.7 g/dl (6.4-8.2)
[2024-12-28 09:05] LABS: ALK PHOS 89.0 U/L (45-117)
[2024-12-28] MEDS ORDERED: KCL 10 MEQ IVPB 10 MEQ/100 ML INFUS.BAG IVPB SCH (12:00)
[2024-12-28] MEDS: POTASSIUM PHOSPHATE 30 MM in DEXTROSE 5%-WATER - 500 ML IVPB ONE (12:16)
[2024-12-28] MEDS: AMINO ACIDS 4.25%/D5W 1,000 ML IV SCH (17:09)
[2024-12-28] MEDS: POTASSIUM CHLORIDE 10 MEQ in AMINO ACIDS 4.25%/D5W 1,000 ML IV SCH (22:23)
[2024-12-29 08:43] LABS: MCHC 35.8 g/dl (32.3-36.5); MEAN CELL VOLUME 91.1 fl (79.0-92.2); MEAN PLT VOLUME 10.6 fl (9.4-12.4); RDW 15.0 % (12.2-16.6)
[2024-12-29] MEDS ORDERED: PIPERACILLIN/TAZOBACTAM 3.375 GM VIAL IVPB ONE ×2 (08:49→17:23)
[2024-12-29 09:31] LABS: CO2 29.0 mmol/L (21-32)
[2024-12-29 09:39] LABS: SGPT/ALT 15.0 U/L (13-61)
[2024-12-29 09:40] LABS: CREATININE 1.2 mg/dL (0.55-1.3)
[2024-12-29 09:43] LABS: TOT PROT 5.6 g/dl (6.4-8.2)
[2024-12-29 09:45] LABS: SGOT/AST 19.0 U/L (15-37)
[2024-12-29 09:48] LABS: LDL CHOLESTEROL (ONLY SJRH) 33.0 mg/dL (5-100)
[2024-12-29 09:50] LABS: ALK PHOS 82.0 U/L (45-117); GLUCOSE,RANDOM 99.0 mg/dL (74-106)
[2024-12-29] MEDS: KCL 10 MEQ IVPB 10 MEQ/100 ML INFUS.BAG IVPB SCH (12:11)
[2024-12-29] MEDS: MAGNESIUM 2GM/50ML STERILE WATER IVPB IVPB ONE (14:50)
[2024-12-29] MEDS ORDERED: KCL 10 MEQ IVPB 10 MEQ/100 ML INFUS.BAG IVPB SCH (19:45)
[2024-12-29] MEDS: FAT EMULSION/OLIVE/SOY/PHOSPHO 250 ML IV SCH (21:24)
[2024-12-29] MEDS ORDERED: FAT EMULSION/OLIVE/SOY (CLINOLIPID) 250 ML EMULSION IV SCH (22:00)
[2024-12-30 09:39] LABS: ABSOLUTE IMMATURE GRANULOCYTES 0.02 x10^3/uL (0.0-0.031); BASOPHILS # 0.02 x10^3/uL (0.01-0.08); EOSINOPHIL % 1.1 % (0.8-7.0); EOSINOPHILS # 0.08 x10^3/uL (0.04-0.54); MCHC 34.8 g/dl (32.3-36.5); MEAN CELL VOLUME 89.8 fl (79.0-92.2); MEAN PLT VOLUME 10.6 fl (9.4-12.4); MONOCYTE # 0.55 x10^3/uL (0.30-0.82); MONOCYTE % 7.7 % (5.3-12.2); RDW 15.1 % (12.2-16.6)
[2024-12-30 10:30] LABS: CO2 24.0 mmol/L (21-32); GLUCOSE,RANDOM 102.0 mg/dL (74-106)
[2024-12-30 10:33] LABS: CREATININE 1.0 mg/dL (0.55-1.3)
[2024-12-30 10:34] LABS: ALK PHOS 72.0 U/L (45-117); SGOT/AST 17.0 U/L (15-37); SGPT/ALT 15.0 U/L (13-61); TOT PROT 5.4 g/dl (6.4-8.2)
[2024-12-30] MEDS ORDERED: METOPROLOL TARTRATE 5 MG/5 ML VIAL IVPUSH PRN (12:56)
[2024-12-30] MEDS: MAGNESIUM 1GM/D5W - 1 GM/100 ML IVPB IVPB ONE (13:06)
[2024-12-30] MEDS: MAGNESIUM SULF 50% (8.12 MEQ/2 ML-1 GM VIAL) IVPB ONE (13:23)
[2024-12-30] MEDS: KCL 10 MEQ IVPB 10 MEQ/100 ML INFUS.BAG IVPB SCH (13:36)
[2024-12-31] MEDS ORDERED: PIPERACILLIN/TAZOBACTAM 3.375 GM VIAL IVPB ONE (09:53)
[2024-12-31 11:04] LABS: ABSOLUTE IMMATURE GRANULOCYTES 0.03 x10^3/uL (0.0-0.031); BASOPHILS # 0.02 x10^3/uL (0.01-0.08); EOSINOPHIL % 1.7 % (0.8-7.0); EOSINOPHILS # 0.13 x10^3/uL (0.04-0.54); MCHC 34.5 g/dl (32.3-36.5); MEAN CELL VOLUME 91.8 fl (79.0-92.2); MEAN PLT VOLUME 10.6 fl (9.4-12.4); MONOCYTE # 0.54 x10^3/uL (0.30-0.82); MONOCYTE % 6.9 % (5.3-12.2); RDW 14.8 % (12.2-16.6)
[2024-12-31 11:27] LABS: CO2 28.0 mmol/L (21-32); GLUCOSE,RANDOM 106.0 mg/dL (74-106)
[2024-12-31 11:28] LABS: LDL CHOLESTEROL (ONLY SJRH) 50.0 mg/dL (5-100)
[2024-12-31 11:30] LABS: CREATININE 1.1 mg/dL (0.55-1.3); SGOT/AST 17.0 U/L (15-37); SGPT/ALT 16.0 U/L (13-61)
[2024-12-31 11:31] LABS: TOT PROT 5.6 g/dl (6.4-8.2)
[2024-12-31 11:32] LABS: ALK PHOS 71.0 U/L (45-117)
[2024-12-31 11:33] LABS: N-TERMINAL BNP 3797.4 pg/ml (5-450)
[2024-12-31] MEDS: POTASSIUM PHOSPHATE 30 MM in SODIUM CHLORIDE 500 ML IVPB ONE (14:12)
[2025-01-01] MEDS: POTASSIUM PHOSPHATE 15 MM in DEXTROSE 5%-WATER - 250 ML IVPB ONE (12:12)
[2025-01-01 15:57] LABS: MCHC 33.1 g/dl (32.3-36.5); MEAN CELL VOLUME 90.3 fl (79.0-92.2); MEAN PLT VOLUME 10.0 fl (9.4-12.4); RDW 14.9 % (12.2-16.6)
[2025-01-01 16:46] LABS: CO2 25.0 mmol/L (21-32); GLUCOSE,RANDOM 90.0 mg/dL (74-106)
[2025-01-01 16:50] LABS: CREATININE 1.0 mg/dL (0.55-1.3)
[2025-01-02 10:35] LABS: MCHC 33.4 g/dl (32.3-36.5); MEAN CELL VOLUME 90.3 fl (79.0-92.2); MEAN PLT VOLUME 10.1 fl (9.4-12.4); RDW 14.7 % (12.2-16.6)
[2025-01-02 11:03] LABS: GLUCOSE,RANDOM 76.0 mg/dL (74-106)
[2025-01-02 11:06] LABS: CREATININE 1.0 mg/dL (0.55-1.3); SGOT/AST 16.0 U/L (15-37); SGPT/ALT 15.0 U/L (13-61)
[2025-01-02 11:08] LABS: TOT PROT 5.6 g/dl (6.4-8.2)
[2025-01-02 11:09] LABS: ALK PHOS 68.0 U/L (45-117)
[2025-01-02 11:10] LABS: CO2 24.0 mmol/L (21-32)
[2025-01-02 18:40] VITALS: RESP 18
[2025-01-03 12:49] LABS: MCHC 33.0 g/dl (32.3-36.5); MEAN CELL VOLUME 90.7 fl (79.0-92.2); MEAN PLT VOLUME 9.6 fl (9.4-12.4); RDW 14.8 % (12.2-16.6)
[2025-01-03 13:38] LABS: CO2 26.0 mmol/L (21-32); GLUCOSE,RANDOM 70.0 mg/dL (74-106)
[2025-01-03 13:41] LABS: CREATININE 1.2 mg/dL (0.55-1.3); SGOT/AST 20.0 U/L (15-37); SGPT/ALT 17.0 U/L (13-61)
[2025-01-03 13:43] LABS: TOT PROT 6.0 g/dl (6.4-8.2)
[2025-01-03 13:44] LABS: ALK PHOS 78.0 U/L (45-117)
[2025-01-03] MEDS ORDERED: ARTIFICIAL TEARS OPHTHALMIC DROPS OU PRN (15:53)
[2025-01-04 10:02] VITALS: BP 125/77; PULSE 88; TEMP 97
== END 2025-01-04 10:42 | disposition hospice, inpatient (51) | DRG 177 ==
LOC: JER 06:21 → JERBED 12:28 → J5S 15:00 → J4W 12-30 15:51 → J6W TELE 01-01 16:30
PROVIDERS: ADMIT Internal Medicine; ATTEND Internal Medicine
DX: J69.0 Pneumonitis due to inhalation of food and vomit (principal); G92.8 Other toxic encephalopathy; R53.2 Functional quadriplegia; J96.01 Acute respiratory failure with hypoxia; E44.0 Moderate protein-calorie malnutrition; I13.0 Hypertensive heart and chronic kidney disease with heart failure and stage 1 through stage 4 chronic kidney disease, or unspecified chronic kidney disease; J98.11 Atelectasis; L89.151 Pressure ulcer of sacral region, stage 1; F02.80 Dementia in other diseases classified elsewhere, unspecified severity, without behavioral disturbance, psychotic disturbance, mood disturbance, and anxiety; G30.9 Alzheimer's disease, unspecified; E03.9 Hypothyroidism, unspecified; N18.30 Chronic kidney disease, stage 3 unspecified; G40.909 Epilepsy, unspecified, not intractable, without status epilepticus; I48.91 Unspecified atrial fibrillation; F32.A Depression, unspecified; Z68.20 Body mass index [BMI] 20.0-20.9, adult
CPT/HCPCS: 36415; 70450-TC; 71045-TC-FY; 71250-TC; 74230-TC-FY; 80048; 80053; 80061; 81003; 82248; 82550; 82803; 82962; 83036; 83735; 83880; 84100; 84439; 84443; 84484; 85025; 85027; 85610; 85730; 86803; 86850; 86900; 86901; 87040; 87086; 87389; 87637-QW; 87899; 92611-GN; 93005; 93010; 93306-TC; 94640; 97116-GP; 97161-GP; 99285-25